=== PATIENT | male | born 1935 | race Caucasian/White ===

== ENCOUNTER 2017-07-30 23:47 | Inpatient (IN) | payer OTHER ==
[~2017-07-30] VITALS: Ht 170.2 cm; Wt 91.1 kg
[2017-07-31 01:12] LABS: Basophils # (auto) 0 uL; Eosinophils # (auto) 0 uL; Hematocrit 35.8 % (41.0-53.0); Hemoglobin 12.2 g/dL (13.5-17.5); Lymphocytes # (auto) 0.4 uL; Lymphocytes % (auto) 2.9 % (10.0-50.0); Mean Corpuscular Hemoglobin 30.5 pg (28.0-32.0); Mean Corpuscular Hgb Conc. 34.1 g/dL (32.0-36.0); Mean Corpuscular Volume 89.2 fL (80.0-100.0); Monocytes # (auto) 0.5 uL; Neutrophils % (auto) 93.1 % (37.0-80.0); Platelet Count (auto) 182 10^3/uL (140-450); Red Blood Cells 4.02 10^6/uL (4.5-5.90); Red Cell Distribution Width 13.3 % (11.8-14.3); White Blood Cell 12.9 10^3/uL (4.4-10.8)
[2017-07-31 01:24] LABS: Albumin 4.1 g/dL (3.4-5.0); BUN/Creatinine Ratio 28.7; Calcium 8.9 mg/dL (8.5-10.1); Potassium 3.6 mmol/L (3.5-5.1)
[2017-07-31 01:29] LABS: Bilirubin, Total 0.3 mg/dL (0.2-1.0); Total Protein 7.3 g/dL (6.4-8.2)
[2017-07-31] MEDS ORDERED: PROMETHAZINE HCL 25 MG/ML 1ML IV ONE (01:30)
[2017-07-31] MEDS ORDERED: methylPREDNISolone SOD SUCC 125 MG/2 ML VL IV ONE (01:30)
[2017-07-31] MEDS ORDERED: LEVOFLOXACIN 750MG 150 ML IV ONE (01:30)
[2017-07-31] MEDS ORDERED: SODIUM CHLORIDE 0.9% 1,000 ML IV ONE (01:30)
[2017-07-31] MEDS ORDERED: NITROGLYCERIN 0.4 MG SL TAB SL ONE (03:45)
[2017-07-31] MEDS ORDERED: MORPHINE SULFATE 10 MG/ML INJ 1ML SDV IV PRN (08:45)
[2017-07-31] MEDS ORDERED: LORazepam 0.5 MG TAB PO PRN (08:45)
[2017-07-31] MEDS ORDERED: ZOLPIDEM TARTRATE 5 MG TAB PO PRN (08:45)
[2017-07-31] MEDS ORDERED: NITROGLYCERIN 0.4 MG SL TAB SL PRN ×2 (08:45)
[2017-07-31] MEDS ORDERED: MORPHINE SULF INJ 2 MG/ML SYRINGE 1ML IV PRN (08:45)
[2017-07-31] MEDS ORDERED: ALUM & MAG HYDROX-SIMETH LIQ(MAALOX) 30 ML PO ONE (08:45)
[2017-07-31] MEDS ORDERED: ONDANSETRON HCL 4 MG/2 ML VIAL IV PRN (08:45)
[2017-07-31] MEDS: cefTRIAXone 1GM/10ml IVPUSH 10 ML IV SCH (09:00)
[2017-07-31] MEDS ORDERED: DEXTROSE (50%) 50ML SYRG IV PRN (09:15)
[2017-07-31 09:50] LABS: Urine Bacteria FEW /hpf (None Seen); Urine Blood Negative /uL (Negative); Urine Mucus FEW (None Seen); Urine Specific Gravity 1.027 (1.001-1.035); Urine WBC 2 /hpf (0 - 3)
[2017-07-31] MEDS ORDERED: ENALAPRIL MALEATE 2.5 MG TAB PO SCH (10:00)
[2017-07-31] MEDS: DOCUSATE SOD 100 MG CAP PO SCH (10:44)
[2017-07-31] MEDS: CARVEDILOL 3.125 MG TAB PO SCH ×2 (10:47→22:00)
[2017-07-31] MEDS: ASPirin 81 mg TAB PO SCH (10:47)
[2017-07-31] MEDS: LOSARTAN POTASSIUM 25 MG TAB PO SCH (10:47)
[2017-07-31] MEDS: ACETYLCYSTEINE ORAL for CIN 20%(200MG/ML) 4ML PO SCH ×2 (10:48→22:00)
[2017-07-31] MEDS: FUROSEMIDE 40 MG TAB PO SCH (10:48)
[2017-07-31] MEDS: POTASSIUM CHL 10 Meq TABLET PO SCH (10:48)
[2017-07-31] MEDS: busPIRone HCL 10 MG TAB PO SCH ×2 (10:49→22:00)
[2017-07-31] MEDS: amLODIPine BESYLATE 5 MG TAB PO SCH (10:49)
[2017-07-31] MEDS: ENOXAPARIN SOD 80 MG/0.8ML SYRINGE SC SCH ×2 (10:49→22:00)
[2017-07-31] MEDS: CLOPIDOGREL BISULFATE 75 MG TAB PO SCH (10:49)
[2017-07-31 11:03] VITALS: BP 137/76
[2017-07-31] MEDS: InsuLIN REG 1unit/0.01ml Soln (100units/ml) SC SCH ×3 (11:30→22:00)
[2017-07-31] MEDS: ACCU-CHEK COMFORT CURVE STRIP VI SCH ×3 (11:30→22:00)
[2017-07-31] MEDS: ALBUTEROL SULF 2.5 MG/0.5ML(0.5%) NEB SOLN NEB SCH ×2 (11:36→18:40)
[2017-07-31] MEDS: IPRATROPIUM BROM 0.5 MG/2.5ML INH SOL NEB SCH ×2 (11:36→18:40)
[2017-07-31 11:46] LABS: INR 1.01 (0.9-1.15)
[2017-07-31] MEDS: SODIUM CHLOR 0.9% PF (SALINE LOCK) 10ML VIAL IV SCH ×2 (14:08→22:00)
[2017-07-31] MEDS ORDERED: LIDOCAINE 2%HCL (LOCAL ANESTH.) INJ 20ML MDV ONE (18:05)
[2017-07-31] MEDS ORDERED: IODIXANOL 320MG/ML 100ML BTL IV ONE (18:05)
[2017-07-31] MEDS ORDERED: ANGIOMAX 250 MG VIAL IV ONE (18:13)
[2017-07-31] MEDS ORDERED: fentaNYL CITRATE 100 MCG/2 ML VL ONE (18:14)
[2017-07-31] MEDS ORDERED: MIDAZOLAM HCL 1MG/1ML-2 ML VIAL ONE (18:14)
[2017-07-31] MEDS ORDERED: SODIUM CHL 0.9% 0 ML ONE (18:14)
[2017-07-31 19:45] VITALS: BP 129/68
[2017-07-31 20:11] VITALS: BP 132/67
[2017-07-31 20:44] VITALS: BP 127/66
[2017-07-31 21:15] VITALS: BP 136/71
[2017-07-31] MEDS: ATORVASTATIN 20 MG TAB PO SCH (22:00)
[2017-07-31] MEDS: DESMOPRESSIN ACET 0.01% 5ML NASAL SPRY SCH (22:00)
[2017-07-31 22:18] VITALS: BP 134/70
[2017-08-01] VITALS (7 sets, daily range): BP systolic 136–157; BP diastolic 62–81
[2017-08-01] MEDS: IPRATROPIUM BROM 0.5 MG/2.5ML INH SOL NEB SCH ×4 (00:15→19:57)
[2017-08-01] MEDS: ALBUTEROL SULF 2.5 MG/0.5ML(0.5%) NEB SOLN NEB SCH ×4 (00:15→19:57)
[2017-08-01] MEDS: SODIUM CHLOR 0.9% PF (SALINE LOCK) 10ML VIAL IV SCH ×3 (06:00→22:00)
[2017-08-01] MEDS: InsuLIN REG 1unit/0.01ml Soln (100units/ml) SC SCH ×4 (06:51→22:00)
[2017-08-01] MEDS: ACCU-CHEK COMFORT CURVE STRIP VI SCH ×4 (06:51→22:00)
[2017-08-01 08:23] LABS: Basophils # (auto) 0 uL; Basophils % (auto) 0.1 % (0.0-2.0); Eosinophils # (auto) 0 uL; Hematocrit 38.8 % (41.0-53.0); Hemoglobin 13.2 g/dL (13.5-17.5); Lymphocytes # (auto) 0.7 uL; Lymphocytes % (auto) 5.2 % (10.0-50.0); Mean Corpuscular Hgb Conc. 34.1 g/dL (32.0-36.0); Monocytes # (auto) 1.2 uL; Monocytes % (auto) 9.4 % (0.0-12.0); Neutrophils # (auto) 10.9 uL; Neutrophils % (auto) 85.3 % (37.0-80.0); Platelet Count (auto) 187 10^3/uL (140-450); Red Blood Cells 4.41 10^6/uL (4.5-5.90); Red Cell Distribution Width 13.4 % (11.8-14.3); White Blood Cell 12.8 10^3/uL (4.4-10.8)
[2017-08-01] MEDS: ACETAMINOPHEN 325 MG TAB PO PRN ×2 (08:39→16:29)
[2017-08-01] MEDS: cefTRIAXone 1GM/10ml IVPUSH 10 ML IV SCH (08:41)
[2017-08-01 08:43] LABS: Albumin 3.6 g/dL (3.4-5.0); BUN/Creatinine Ratio 30.1; Bilirubin, Total 0.3 mg/dL (0.2-1.0); Calcium 8.4 mg/dL (8.5-10.1); Magnesium 2.3 mg/dL (1.6-2.6); Potassium 3.9 mmol/L (3.5-5.1); Total Protein 6.7 g/dL (6.4-8.2)
[2017-08-01] MEDS: CLOPIDOGREL BISULFATE 75 MG TAB PO SCH (08:43)
[2017-08-01] MEDS: ENOXAPARIN SOD 80 MG/0.8ML SYRINGE SC SCH ×2 (08:43→22:00)
[2017-08-01] MEDS: LOSARTAN POTASSIUM 25 MG TAB PO SCH (08:44)
[2017-08-01] MEDS: busPIRone HCL 10 MG TAB PO SCH ×2 (08:44→22:00)
[2017-08-01] MEDS: FUROSEMIDE 40 MG TAB PO SCH (08:45)
[2017-08-01] MEDS: amLODIPine BESYLATE 5 MG TAB PO SCH (08:45)
[2017-08-01] MEDS: POTASSIUM CHL 10 Meq TABLET PO SCH (08:45)
[2017-08-01] MEDS: DOCUSATE SOD 100 MG CAP PO SCH (08:46)
[2017-08-01] MEDS: ASPirin 81 mg TAB PO SCH (08:46)
[2017-08-01] MEDS: CARVEDILOL 3.125 MG TAB PO SCH ×2 (08:47→22:00)
[2017-08-01] MEDS: ACETYLCYSTEINE ORAL for CIN 20%(200MG/ML) 4ML PO SCH ×2 (10:46→22:00)
[2017-08-01] MEDS: PROMETHAZINE W/CODEINE 5 ML ORAL SYRUP PO PRN ×2 (10:47→16:28)
[2017-08-01 16:56] LABS: Urine Bacteria NONE SEEN /hpf (None Seen); Urine Blood Negative /uL (Negative); Urine Specific Gravity 1.015 (1.001-1.035); Urine WBC 3 /hpf (0 - 3)
[2017-08-01] MEDS ORDERED: ASPI-231 PO (19:26)
[2017-08-01] MEDS: DESMOPRESSIN ACET 0.01% 5ML NASAL SPRY SCH (22:00)
[2017-08-01] MEDS: ATORVASTATIN 20 MG TAB PO SCH (22:00)
[2017-08-02] MEDS: IPRATROPIUM BROM 0.5 MG/2.5ML INH SOL NEB SCH ×3 (00:26→11:32)
[2017-08-02] MEDS: ALBUTEROL SULF 2.5 MG/0.5ML(0.5%) NEB SOLN NEB SCH ×3 (00:27→11:32)
[2017-08-02 05:38] VITALS: BP 132/68
[2017-08-02] MEDS: SODIUM CHLOR 0.9% PF (SALINE LOCK) 10ML VIAL IV SCH ×2 (06:00→14:14)
[2017-08-02] MEDS: PROMETHAZINE W/CODEINE 5 ML ORAL SYRUP PO PRN (06:48)
[2017-08-02] MEDS: InsuLIN REG 1unit/0.01ml Soln (100units/ml) SC SCH ×2 (06:48→12:48)
[2017-08-02] MEDS: ACCU-CHEK COMFORT CURVE STRIP VI SCH ×2 (06:52→12:48)
[2017-08-02 07:11] LABS: Basophils # (auto) 0 uL; Basophils % (auto) 0.1 % (0.0-2.0); Eosinophils # (auto) 0 uL; Eosinophils % (auto) 0.4 % (0.0-7.0); Hematocrit 38.4 % (41.0-53.0); Lymphocytes # (auto) 1.2 uL; Mean Corpuscular Hemoglobin 30.1 pg (28.0-32.0); Mean Corpuscular Hgb Conc. 33.9 g/dL (32.0-36.0); Mean Corpuscular Volume 88.8 fL (80.0-100.0); Monocytes # (auto) 1.2 uL; Monocytes % (auto) 10.6 % (0.0-12.0); Neutrophils # (auto) 8.7 uL; Neutrophils % (auto) 77.9 % (37.0-80.0); Nucleated Red Blood Cells % 0.1 %; Platelet Count (auto) 173 10^3/uL (140-450); Red Blood Cells 4.32 10^6/uL (4.5-5.90); Red Cell Distribution Width 13.1 % (11.8-14.3); White Blood Cell 11.2 10^3/uL (4.4-10.8)
[2017-08-02 07:42] LABS: BUN/Creatinine Ratio 32.3; Calcium 8.3 mg/dL (8.5-10.1); Potassium 4.6 mmol/L (3.5-5.1)
[2017-08-02 08:00] VITALS: BP 140/69
[2017-08-02 09:00] VITALS: BP_SYST 128; BP_SYST 140; BP_DIAS 69; BP_DIAS 73
[2017-08-02] MEDS: cefTRIAXone 1GM/10ml IVPUSH 10 ML IV SCH (09:02)
[2017-08-02] MEDS: ASPirin 81 mg TAB PO SCH (09:03)
[2017-08-02] MEDS: LOSARTAN POTASSIUM 25 MG TAB PO SCH (09:03)
[2017-08-02] MEDS: CARVEDILOL 3.125 MG TAB PO SCH (09:03)
[2017-08-02] MEDS: POTASSIUM CHL 10 Meq TABLET PO SCH (09:04)
[2017-08-02] MEDS: amLODIPine BESYLATE 5 MG TAB PO SCH (09:04)
[2017-08-02] MEDS: FUROSEMIDE 40 MG TAB PO SCH (09:04)
[2017-08-02] MEDS: CLOPIDOGREL BISULFATE 75 MG TAB PO SCH (09:04)
[2017-08-02] MEDS: busPIRone HCL 10 MG TAB PO SCH (09:05)
[2017-08-02] MEDS: ENOXAPARIN SOD 80 MG/0.8ML SYRINGE SC SCH (09:05)
[2017-08-02] MEDS: DOCUSATE SOD 100 MG CAP PO SCH (09:05)
[2017-08-02 13:00] VITALS: BP 121/49
== END 2017-08-02 15:00 | disposition left against medical advice (07) | DRG 871 ==
LOC: EDBD 23:47 → ER 23:54 → TELE 23:55 → TELE-EAST 07-31 19:45
PROVIDERS: ADMIT Internal Medicine; ATTEND Nurse Practitioner Acute Care
PROC: 4A023N7 Measurement of Cardiac Sampling and Pressure, Left Heart, Percutaneous Approach (ICD-10-PCS; principal; 2017-07-31)
PROC: B2111ZZ Fluoroscopy of Multiple Coronary Arteries using Low Osmolar Contrast (ICD-10-PCS; 2017-07-31)
PROC: B2131ZZ Fluoroscopy of Multiple Coronary Artery Bypass Grafts using Low Osmolar Contrast (ICD-10-PCS; 2017-07-31)
PROC: B2181ZZ Fluoroscopy of Left Internal Mammary Bypass Graft using Low Osmolar Contrast (ICD-10-PCS; 2017-07-31)
PROC: B41G1ZZ Fluoroscopy of Left Lower Extremity Arteries using Low Osmolar Contrast (ICD-10-PCS; 2017-07-31)
PROC: B41F1ZZ Fluoroscopy of Right Lower Extremity Arteries using Low Osmolar Contrast (ICD-10-PCS; 2017-07-31)
DX: A41.9 Sepsis, unspecified organism (principal); I21.4 Non-ST elevation (NSTEMI) myocardial infarction; I50.33 Acute on chronic diastolic (congestive) heart failure; J44.0 Chronic obstructive pulmonary disease with (acute) lower respiratory infection; E87.1 Hypo-osmolality and hyponatremia; E11.21 Type 2 diabetes mellitus with diabetic nephropathy; J45.901 Unspecified asthma with (acute) exacerbation; J44.1 Chronic obstructive pulmonary disease with (acute) exacerbation; I13.0 Hypertensive heart and chronic kidney disease with heart failure and stage 1 through stage 4 chronic kidney disease, or unspecified chronic kidney disease; I25.82 Chronic total occlusion of coronary artery; J20.9 Acute bronchitis, unspecified; N18.3 Chronic kidney disease, stage 3 (moderate); D63.8 Anemia in other chronic diseases classified elsewhere; E11.22 Type 2 diabetes mellitus with diabetic chronic kidney disease; E66.9 Obesity, unspecified; Z88.1 Allergy status to other antibiotic agents; E78.5 Hyperlipidemia, unspecified; F32.9 Major depressive disorder, single episode, unspecified; F41.9 Anxiety disorder, unspecified; E78.00 Pure hypercholesterolemia, unspecified; I25.10 Atherosclerotic heart disease of native coronary artery without angina pectoris; Z79.82 Long term (current) use of aspirin; Z82.49 Family history of ischemic heart disease and other diseases of the circulatory system; Z68.31 Body mass index [BMI] 31.0-31.9, adult; Z87.891 Personal history of nicotine dependence; Z83.3 Family history of diabetes mellitus; Z95.1 Presence of aortocoronary bypass graft; Z98.61 Coronary angioplasty status; Z53.21 Procedure and treatment not carried out due to patient leaving prior to being seen by health care provider
CPT/HCPCS: 93459; 96361; 96365; 96372; 96375; 99285; G0278; 36415; 71045; 80048; 80053; 80061; 81001; 82962; 83036; 83735; 83880; 84443; 84484; 85025; 85610; 87400; 93005; 93306; 94640; 94761; 99152; J1815; J1956; J2250; J2405; Q9967

== ENCOUNTER 2017-11-27 12:38 | Emergency (ER) | payer OTHER ==
[~2017-11-27] VITALS: Ht 172.7 cm; Wt 86.2 kg
[~2017-11-27 12:38] MED LIST: ASPI-231 PO
[2017-11-27 13:44] LABS: Basophils # (auto) 0 uL; Basophils % (auto) 0.2 % (0.0-2.0); Eosinophils # (auto) 0 uL; Eosinophils % (auto) 0.1 % (0.0-7.0); Hematocrit 35.6 % (41.0-53.0); Hemoglobin 12.4 g/dL (13.5-17.5); Lymphocytes # (auto) 0.4 uL; Lymphocytes % (auto) 2.2 % (10.0-50.0); Mean Corpuscular Hemoglobin 29.5 pg (28.0-32.0); Mean Corpuscular Hgb Conc. 34.8 g/dL (32.0-36.0); Mean Corpuscular Volume 84.9 fL (80.0-100.0); Monocytes # (auto) 0.6 uL; Monocytes % (auto) 3.6 % (0.0-12.0); Neutrophils # (auto) 15.4 uL; Neutrophils % (auto) 93.9 % (37.0-80.0); Platelet Count (auto) 151 10^3/uL (140-450); Red Cell Distribution Width 12.7 % (11.8-14.3); White Blood Cell 16.4 10^3/uL (4.4-10.8)
[2017-11-27 14:01] LABS: Alanine Aminotransferase 23 U/L (16-61); Albumin 4.1 g/dL (3.4-5.0); Anion Gap 12 (5-15); Aspartate Aminotransferase 27 U/L (15-37); BUN/Creatinine Ratio 15.8; Blood Urea Nitrogen 25 mg/dL (7-18); Calcium 8.6 mg/dL (8.5-10.1); Carbon Dioxide 23 mmol/L (21-32); Chloride 86 mmol/L (98-107); GFR African American 56 mL/min; GFR Non-African American 46 mL/min; Glucose 153 mg/dL (74-106); Magnesium 1.6 mg/dL (1.6-2.6); Potassium 3.6 mmol/L (3.5-5.1); Sodium 121 mmol/L (136-145)
[2017-11-27 14:06] LABS: Alkaline Phosphatase 46 U/L (45-117); Bilirubin, Total 0.7 mg/dL (0.2-1.0); Total Protein 6.9 g/dL (6.4-8.2)
[2017-11-27] MEDS ORDERED: SODIUM CHLORIDE 0.9% 1,000 ML IV ONE ×3 (15:08→15:15)
[2017-11-27] MEDS ORDERED: cefTRIAXone 1GM/10ml IVPUSH 10 ML IV ONE (15:15)
[2017-11-27 16:12] LABS: Urine Bacteria NONE SEEN /hpf (None Seen); Urine Blood 2+ /uL (Negative); Urine Specific Gravity 1.014 (1.001-1.035); Urine WBC 3 /hpf (0 - 3)
[2017-11-27 20:21] VITALS: BP 128/65
== END 2017-11-27 20:33 | disposition short-term general hospital (02) ==
LOC: MERGE 12:38 → EDBD 12:38 → ER 12:38
DX: E11.65 Type 2 diabetes mellitus with hyperglycemia (principal); E87.1 Hypo-osmolality and hyponatremia; R55 Syncope and collapse; I10 Essential (primary) hypertension; R42 Dizziness and giddiness; Z95.1 Presence of aortocoronary bypass graft
CPT/HCPCS: 36415; 70450; 74176; 80053; 81001; 83605; 83735; 84484; 85025; 87040; 93005; 93971; 94761; 96361; 96374

== ENCOUNTER 2025-01-18 15:54 | Emergency (ER) | payer OTHER ==
[~2025-01-18] VITALS: Ht 175.3 cm; Wt 72.0 kg
[~2025-01-18 15:54] MED LIST changes: -ASPI-231 PO; +ASPI1TAB20 PO
[2025-01-18 16:10] VITALS: PULSE 63; RESP 16; O2SAT 95
--- NOTE | 2025-01-18 16:22 | ED.PDOC ---
[place]. trauma (HPI) HPI Comments 89-year-old male presents here status post fall. Patient states he was walking outside to get the mail when he tripped and fell. Denies any dizziness prior to falling. Denies any chest pain or shortness of breath. Reports some mild left elbow pain only. Denies any headache. States he did not hit his head. Did not lose any consciousness. Patient is not on any blood thinners. Denies any neck or back pain. Denies any hip pain. He states he is able to move all extremities no problem including the left elbow. Chief Complaint: Fall Injury Time Seen by MD: 16:20 Primary Care Provider: [facility] Reviewed notes: Nurses Notes, French Teacher Notes, Medications, Allergies Allergies: Coded Allergies: Bacitracin (Verified Allergy, Unknown, 02/05/16) Neomycin (Verified Allergy, Unknown, 02/05/16) Polymyxin B (Verified Allergy, Unknown, 02/05/16) Home Meds Reported Medications Aspirin (Aspir-81) 81 Mg Tab, 1 TAB PO DAILY, TAB 08/01/17 Information Source: Patient Mode of Arrival: EMS Severity: Moderate Timing: Minutes Duration: Since onset Prehospital treatment: None Location: (L) Elbow Location of laceration: None Mechanism: Fall Associated signs and symtoms: None Past Medical History PAST MEDICAL HISTORY: Anxiety, CAD, CHF, COPD, Depression, DM, High Lipids, HTN Surgical History: CABG Family History Family History: No family hx of DM, No family hx of Heart victorina, No family hx of HTN Social History Smoker: Non-Smoker Alcohol: Denies ETOH Use Drugs: Denies Drug Use Lives In: Home Constitutional: denies: chills, diaphoresis, fatigue, fever, malaise, sweats, weakness, others EENTM: denies: blurred vision, double vision, ear bleeding, ear discharge, ear drainage, ear pain, ear ringing, eye pain, eye redness, hearing loss, mouth pain, mouth swelling, nasal discharge, nose bleeding, nose congestion, nose pain, photophobia, tearing, throat pain, throat swelling, voice changes, others Respiratory: denies: cough, hemoptysis, orthopnea, SOB at rest, shortness of breath, SOB with excertion, stridor, wheezing, others Cardiovascular: denies: chest pain, dizzy spells, diaphoresis, Dyspnea on exertion, edema, irregular heart beat, left arm pain, lightheadedness, palpitations, PND, syncope, others Gastrointestinal: denies: abdomen distended, abdominal pain, blood streaked bowels, constipated, diarrhea, dysphagia, difficulty swallowing, hematemesis, melena, nausea, poor appetite, poor fluid intake, rectal bleeding, rectal pain, vomiting, others Genitourinary: denies: burning, dysuria, flank pain, frequency, hematuria, incontinence, penile discharge, penile sore, pain, testicle pain, testicle swelling, urgency, others Neurological: denies: dizziness, fainting, headache, left sided numbness, left sided weakness, numbness, paresthesia, pre-existing deficit, right sided numbness, right sided weakness, seizure, speech problems, tingling, tremors, weakness, others Musculoskeletal: reports: others (left elbow pain); denies: back pain, gout, joint pain, joint swelling, muscle pain, muscle stiffness, neck pain Integumetry: denies: bruises, change in color, change in hair/nails, dryness, laceration, lesions, lumps, rash, wounds, others Allergic/Immunocompromised: denies: Difficulty Healing, Frequent Infections, Hives, Itching, others Hematologic/Lymphatic: denies: anemia, blood clots, easy bleeding, easy bruising, swollen glands, others Endocrine: denies: excessive hunger, excessive sweating, excessive thirst, excessive urination, flushing, intolerance to cold, intolerance to heat, unexplained weight gain, unexplained weight loss, others Psychiatric: denies: anxiety, bipolar disorder, depression, hopeless, panic disorder, schizophrenia, sleepless, suicidal, others All Other Systems: Reviewed and Negative Physical Exam General Appearance: No Apparent Distress, Normal HEENT: Normal ENT Inspection, Pharynx Normal Neck: Full Range of Motion, Non-Tender, Normal, Normal Inspection Respiratory: Chest Non-Tender, Lungs Clear, No Accessory Muscle Use, No Respiratory Distress, Normal Breath Sounds Cardiovascular: No Edema, No Murmur, No Gallop, Normal Peripheral Pulses, Regular Rate/Rhythm Breast Exam: Deferred Gastrointestinal: No Organomegaly, Non Tender, No Pulsatile Mass, Normal Bowel Sounds, Soft Genitalia: Deferred Pelvic: Deferred Rectal: Deferred Extremities: No calf tenderness, Normal range of motion, Non-tender, Swelling (Bilateral leg swelling was worse in the right. 1+ pitting edema to left lower extremity, 2+ pitting edema to right lower extremity. Mild erythema to the lower aspect of the right lower extremity.), Other (Left elbow with dried blood, and jagged skin tear. Full range of motion to the left elbow. No deformity. Pelvis stable. Nontender CT and L-spine) Musculoskeletal : Apperance: Normal Neurologic: Alert, filter tip inspector II-XII nml as Tested, No Motor Deficits, Normal Affect, Normal Mood, No Sensory Deficits Cerebellar Function: Normal Reflexes: Normal Skin: Dry, Normal Color, Warm Lymphatic: No Adenopathy Was a procedure done? Was a procedure done?: Yes Sedation Sedation?: No Laceration Repair : Length 1. 3 x 2 cm. 2. 1 x 1 cm Anesthetic: Without epi Laceration Repair Prep: Saline, by Irrigation Laceration Repair: Bacitracin, Non-adherent gauze Informed consent obtained: Yes Risks, benefits, and alternati: Yes Notes Steri-Strips applied to skin tear Differential Diagnosis Multiple Trauma: Closed Head Injury, Fractures, Spine Injury, Abrasions, Contu tabatha, Laceration, Other (sprain,strain, contusion, laceration, intracranial hemorrhage, spinal fracture, electrolyte abnormality, DVT, cellulitis, fluid overload) Neck Injury: Cervical Muscle Spasm, Cervical Strain, Cervical Fracture, Spinal Cord Injury X-Ray, Labs, Meds, VS Vital Signs Date Time Temp Pulse Resp B/P (MAP) Pulse Ox O2 Delivery O2 Flow Rate FiO2 01/18/25 16:18 97.6 67 18 121/53 (75) 99 97.6 01/18/25 16:10 63 16 95 Room Air* 0 21 01/18/25 16:10 98.1 63 16 138/60 (86) 95 98.1 Lab Test 01/18/25 16:56 Range/Units White Blood Count 8.1 4.4-10.8 10^3/uL Red Blood Count 3.83 L 4.5-5.90 10^6/uL Hemoglobin 11.9 L 13.5-17.5 g/dL Hematocrit 35.6 L 41.0-53.0 % Mean Corpuscular Volume 92.8 80.0-100.0 fL Mean Corpuscular Hemoglobin 31.1 28.0-32.0 pg Mean Corpuscular Hemoglobin Concent 33.6 32.0-36.0 g/dL Red Cell Distribution Width 15.2 H 11.8-14.3 % Platelet Count 174 140-450 10^3/uL Mean Platelet Volume 7.9 6.9-10.8 fL Neutrophils (%) (Auto) 73.5 37.0-80.0 % Lymphocytes (%) (Auto) 14.4 10.0-50.0 % Monocytes (%) (Auto) 7.1 0.0-12.0 % Eosinophils (%) (Auto) 4.1 0.0-7.0 % Basophils (%) (Auto) 0.9 0.0-2.0 % Neutrophils # (Auto) 6.0 1.6-8.6 10 ^3/uL Lymphocytes # (Auto) 1.2 0.4-5.4 10 ^3/uL Monocytes # (Auto) 0.6 0-1.3 10 ^3/uL Eosinophils # (Auto) 0.3 0-0.8 10 ^3/uL Basophils # (Auto) 0.1 0-0.2 10 ^3/uL Nucleated Red Blood Cells 0.1 % Sodium Level 143 136-145 mmol/L Potassium Level 3.6 3.5-5.1 mmol/L Chloride Level 107 98-107 mmol/L Carbon Dioxide Level 29 20-31 mmol/L Anion Gap 7 5-15 Blood Urea Nitrogen 39 H 9-23 mg/dL Creatinine 2.01 H 0.700-1.30 mg/dL Glomerular Filtration Rate Calc 31 >90 mL/min BUN/Creatinine Ratio 19.4 10.0-20.0 Serum Glucose 124 H 74-106 mg/dL Calcium Level 9.3 8.7-10.4 mg/dL B-Type Natriuretic Peptide Pending Current Medications Medications (Trade) Dose Ordered Sig/Marly Route Start Time Stop Time Status Last Admin Bacitracin 1 applic ONCE ONCE TOP 01/18/25 17:00 01/18/25 17:01 DC 01/18/25 16:59 89-year-old male presents here status post fall. Patient states he was not dizzy. States he tripped and fell. At this time on examination his skin tears to the left elbow which has been cleaned. Tetanus status has been updated. Full range of motion to left elbow doubt fracture. He does have some swelling to his bilateral legs and no other history available. Therefore I have ordered a CBC BMP, BNP, ultrasound of the right lower extremity to rule out DVT. After initial history is now at bedside. She states that the extremity swelling has been there for greater than a year to the right leg and right leg is always more swollen than the left. In the lower end of the right leg is always slightly red. At this time I have canceled the ultrasound to rule out DVT. He does have some kidney issues therefore she is requesting we continue with labs. At this time CBC is unremarkable. BMP demonstrates elevated BUN at 39 with creatinine 2.01. I advised family this could be his normal however they do not know his normal baseline. states she does have this information at home. 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 She states she just follow up with him last week. At this time is comfortable following up with professor of archaeology. Patient has been given dressing supplies in the ER. Daughter is a nurse. Advised patient to return to the ER if symptoms worsen or persist. Time of 1ST Reevaluation: 16:50 Reevaluation 1ST: Unchanged Patient Education/Counseling: Diagnosis, Treatment Family Education/Counseling: No Family Present Departure 1 Departure Time of Disposition: 18:50 Impression: Primary Impression: Skin tear Additional Impression: Acute kidney injury Disposition: HOME / SELF CARE / HOMELESS Condition: Stable Additional Instructions: Your creatinine today is 2.01. Please follow up with the professor of archaeology. Return to the ER if symptoms worsen or persist. Discharged With: Self, Relative, Spouse Critical Care Note Critical Care Time?: No Stability Stability form required: No Heart Score Heart Score: Heart Score Response (Comments) Value History N/A 0 EKG N/A 0 Age N/A 0 Risk Factors N/A 0 Troponin N/A 0 Total 0 I personally scribed for CAYDEN DUNN MD ([email or web address]) on 01/18/25 at 16:22. Electronically submitted by Blanche Bryson ([email or web address]). CAYDEN DUNN MD Jan 18, 2025 16:22
[2025-01-18] MEDS: BACITRACIN TOP OINT 1 UD PKG TOP ONE (16:59)
[2025-01-18 17:04] LABS: Hematocrit 35.6 % (41.0-53.0); Hemoglobin 11.9 g/dL (13.5-17.5); Mean Corpuscular Hemoglobin 31.1 pg (28.0-32.0); Mean Corpuscular Volume 92.8 fL (80.0-100.0); Nucleated Red Blood Cells % 0.1 %
[2025-01-18 17:12] LABS: Potassium 3.6 mmol/L (3.5-5.1); Sodium 143 mmol/L (136-145)
[2025-01-18 17:13] LABS: Anion Gap 7 (5-15); Calcium 9.3 mg/dL (8.7-10.4); Carbon Dioxide 29 mmol/L (20-31)
[2025-01-18 17:18] LABS: BUN/Creatinine Ratio 19.4 (10.0-20.0)
[2025-01-18 17:22] LABS: Blood Urea Nitrogen 39 mg/dL (9-23); Chloride 107 mmol/L (98-107); Glucose 124 mg/dL (74-106)
[2025-01-18 18:01] VITALS: BP 146/51; PULSE 60; RESP 16; TEMP 98.2; O2SAT 96
== END 2025-01-18 18:05 | disposition home or self-care (01) ==
LOC: ER 15:54 → EDBD 15:54 → ER 18:05
DX: S51.012A Laceration without foreign body of left elbow, initial encounter (principal); F41.9 Anxiety disorder, unspecified; F32.A Depression, unspecified; E11.9 Type 2 diabetes mellitus without complications; I11.0 Hypertensive heart disease with heart failure; I25.10 Atherosclerotic heart disease of native coronary artery without angina pectoris; E78.5 Hyperlipidemia, unspecified; I50.9 Heart failure, unspecified; J44.9 Chronic obstructive pulmonary disease, unspecified; N17.9 Acute kidney failure, unspecified; Z95.1 Presence of aortocoronary bypass graft; Z79.82 Long term (current) use of aspirin; W01.0XXA Fall on same level from slipping, tripping and stumbling without subsequent striking against object, initial encounter; Y93.01 Activity, walking, marching and hiking; Y92.89 Other specified places as the place of occurrence of the external cause; Y99.8 Other external cause status
CPT/HCPCS: 36415; 80048; 83880; 85025

== ENCOUNTER 2025-02-03 08:08 | Emergency (ER) | payer OTHER ==
[~2025-02-03] VITALS: Ht 167.6 cm; Wt 68.0 kg
--- NOTE | 2025-02-03 08:29 | ECG ---
[facility] Test Date: 2025-02-03 Test Time: 08:15:09 Pat Name: PRIETO GARCIA Department: ED Room: Gender: M Mini Bar Attendant: ALFONSO : 1935 Requested By: ILSA CHI Order Number: [id number] Reading MD: Miguel To Measurements Intervals [place] Rate: 84 P: 92 LA: 53 QRS: 35 QRSD: 103 T: 29 QT: 418 QTc: 495 Interpretive Statements Sinus rhythm Short LA interval LVH with secondary repolarization abnormality Borderline prolonged QT interval Baseline wander in lead(s) V3 Electronically Signed On 02-04-2025 17:52:55 PDT by Miguel To Please click the below link to view image of tracing.
[2025-02-03 08:59] LABS: Urine Protein, UAD Negative (Negative)
--- NOTE | 2025-02-03 08:59 | ED.PDOC ---
General HPI Comments 89 y/o M, BIBA, with PMHx of anxiety, CAD, CHF, COPD, DM, HLD, and HTN presents to the ED for CC of urinary. Patient is poor historian and c/o suprapubic abdominal pain and inability to have a bowel movement. Upon arrival, to the ED patient had a Leal Catheter placed and had 700mL of clear yellow urine drain; endorses feeling relief. No other associated symptoms, modifiers, recent injuries or sick contacts present at this time. Chief Complaint: Urinary Time Seen by MD: 08:50 Primary Care Provider: [facility] Reviewed notes: Nurses Notes, Medications, Allergies Allergies: Coded Allergies: Bacitracin (Verified Allergy, Unknown, 02/05/16) Neomycin (Verified Allergy, Unknown, 02/05/16) Polymyxin B (Verified Allergy, Unknown, 02/05/16) Home Meds Reported Medications Aspirin (Aspir-81) 81 Mg Tab, 1 TAB PO DAILY, TAB 08/01/17 Information Source: Patient Mode of Arrival: Ambulatory Severity: Moderate Inability to void: Moderate Timing: Days Duration: Since onset Prehospital treatment: None Onset: Spontaneous Symptoms: None History of: None Location: None Penile discharge: None Modifying factors: None associated signs and symptoms: Abdominal Pain, Inability to Void Past Medical History PAST MEDICAL HISTORY: Anxiety, CAD, CHF, COPD, Depression, DM, High Lipids, HTN Surgical History: CABG Family History Family History: No family hx of DM, No family hx of Heart victorina, No family hx of HTN Social History Smoker: Non-Smoker Alcohol: Denies ETOH Use Drugs: Denies Drug Use Lives In: Home Constitutional: denies: chills, diaphoresis, fatigue, fever, malaise, sweats, weakness, others EENTM: denies: blurred vision, double vision, ear bleeding, ear discharge, ear drainage, ear pain, ear ringing, eye pain, eye redness, hearing loss, mouth pain, mouth swelling, nasal discharge, nose bleeding, nose congestion, nose pain, photophobia, tearing, throat pain, throat swelling, voice changes, others Respiratory: denies: cough, hemoptysis, orthopnea, SOB at rest, shortness of breath, SOB with excertion, stridor, wheezing, others Cardiovascular: denies: chest pain, dizzy spells, diaphoresis, Dyspnea on exertion, edema, irregular heart beat, left arm pain, lightheadedness, palpitations, PND, syncope, others Gastrointestinal: reports: abdomen distended, abdominal pain; denies: blood streaked bowels, constipated, diarrhea, dysphagia, difficulty swallowing, joey temesis, melena, nausea, poor appetite, poor fluid intake, rectal bleeding, rectal pain, vomiting, others Genitourinary: denies: burning, dysuria, flank pain, frequency, hematuria, incontinence, penile discharge, penile sore, pain, testicle pain, testicle swelling, urgency, others Neurological: denies: dizziness, fainting, headache, left sided numbness, left sided weakness, numbness, paresthesia, pre-existing deficit, right sided numbness, right sided weakness, seizure, speech problems, tingling, tremors, weakness, others Musculoskeletal: denies: back pain, gout, joint pain, joint swelling, muscle pain, muscle stiffness, neck pain, others Integumetry: denies: bruises, change in color, change in hair/nails, dryness, laceration, lesions, lumps, rash, wounds, others Allergic/Immunocompromised: denies: Difficulty Healing, Frequent Infections, Hives, Itching, others Hematologic/Lymphatic: denies: anemia, blood clots, easy bleeding, easy bruising, swollen glands, others Endocrine: denies: excessive hunger, excessive sweating, excessive thirst, excessive urination, flushing, intolerance to cold, intolerance to heat, unexplained weight gain, unexplained weight loss, others Psychiatric: denies: anxiety, bipolar disorder, depression, hopeless, panic disorder, schizophrenia, sleepless, suicidal, others All Other Systems: Reviewed and Negative Physical Exam General Appearance: No Apparent Distress, Normal HEENT: Normal ENT Inspection, Pharynx Normal Neck: Full Range of Motion, Non-Tender, Normal, Normal Inspection Respiratory: Chest Non-Tender, Lungs Clear, No Accessory Muscle Use, No Respiratory Distress, Normal Breath Sounds Cardiovascular: No Edema, No Murmur, No Gallop, Normal Peripheral Pulses, Regular Rate/Rhythm Breast Exam: Deferred Gastrointestinal: No Organomegaly, Non Tender, No Pulsatile Mass, Normal Bowel Sounds, Soft Genitalia: Deferred Pelvic: Deferred Rectal: Deferred Extremities: No calf tenderness, Normal capillary refill, Normal inspection, Normal range of motion, Non-tender, No pedal edema Musculoskeletal : Apperance: Normal Neurologic: phlebotomy tech II-XII nml as Tested, No Motor Deficits, Normal Affect, Normal Mood, No Sensory Deficits, Other (pleasantly confused) Cerebellar Function: Normal Reflexes: Normal Skin: Dry, Normal Color, Warm Lymphatic: No Adenopathy Was a procedure done? Was a procedure done?: No Differential Diagnosis Kidney stone (Female): N/A Kidney stone (Male): Urinary obstruction, Urolithiasis, Urinary tract infection Penile/Scrotal: N/A Urinary Problem (Male): Urinary Retention Urinary Problem (Female): N/A X-Ray, Labs, Meds, VS Vital Signs Date Time Temp Pulse Resp B/P (MAP) Pulse Ox O2 Delivery O2 Flow Rate FiO2 02/03/25 09:47 68 16 95 Room Air 02/03/25 09:47 97.7 66 16 127/74 (91) 95 97.7 02/03/25 08:40 Room Air* 0 21 02/03/25 08:15 84 02/03/25 08:10 98.0 70 16 138/66 (90) 95 98.0 Lab Test 02/03/25 10:34 02/03/25 08:41 Range/Units White Blood Count 14.2 H 4.4-10.8 10^3/uL Red Blood Count 4.59 4.5-5.90 10^6/uL Hemoglobin 14.4 13.5-17.5 g/dL Hematocrit 42.9 41.0-53.0 % Mean Corpuscular Volume 93.6 80.0-100.0 fL Mean Corpuscular Hemoglobin 31.4 28.0-32.0 pg Mean Corpuscular Hemoglobin Concent 33.5 32.0-36.0 g/dL Red Cell Distribution Width 15.1 H 11.8-14.3 % Platelet Count 195 140-450 10^3/uL Mean Platelet Volume 8.2 6.9-10.8 fL Neutrophils (%) (Auto) 92.7 H 37.0-80.0 % Lymphocytes (%) (Auto) 4.4 L 10.0-50.0 % Monocytes (%) (Auto) 2.3 0.0-12.0 % Eosinophils (%) (Auto) 0.2 0.0-7.0 % Basophils (%) (Auto) 0.4 0.0-2.0 % Neutrophils # (Auto) 13.1 H 1.6-8.6 10 ^3/uL Lymphocytes # (Auto) 0.6 0.4-5.4 10 ^3/uL Monocytes # (Auto) 0.3 0-1.3 10 ^3/uL Eosinophils # (Auto) 0 0-0.8 10 ^3/uL Basophils # (Auto) 0.1 0-0.2 10 ^3/uL Nucleated Red Blood Cells 0.0 % Sodium Level 140 136-145 mmol/L Potassium Level 4.3 3.5-5.1 mmol/L Chloride Level 99 98-107 mmol/L Carbon Dioxide Level 31 20-31 mmol/L Anion Gap 10 5-15 Blood Urea Nitrogen 47 H 9-23 mg/dL Creatinine 2.08 H 0.700-1.30 mg/dL Glomerular Filtration Rate Calc 30 >90 mL/min BUN/Creatinine Ratio 22.6 H 10.0-20.0 Serum Glucose 192 H 74-106 mg/dL Calcium Level 10.2 8.7-10.4 mg/dL Urine Color Light-yellow Yellow Urine Clarity Clear Clear Urine pH 7.0 5.0-9.0 Urine Specific [place] 1.011 1.001-1.035 Urine Protein Negative Negative Urine Ketones Negative Negative Urine Blood Negative Negative /uL Urine Nitrite Negative Negative Urine Bilirubin Negative Negative Urine Urobilinogen Normal Negative mg/dL Urine Leukocyte Esterase Negative Negative /uL Urine RBC None seen 0 - 3 /hpf Urine Microscopic WBC < 1 0-3 /HPF Urine Squamous Epithelial Cells None seen <5 /hpf Urine Bacteria None seen None Seen /hpf Urine Hyaline Casts Few 0 - 2 /lpf Urine Glucose Normal Normal mg/dL [place] [id number] Ph: [phone] DIAGNOSTIC IMAGING Diagnostic Imaging Report : [id number] Signed PATIENT: PRIETO GARCIA ACCT: [id number] UNIT: [id number] : 1935 LOC: ER ROOM / BED: / AGE / SEX: 89 / M ADM STATUS: REG ER SERVICE [id number] ORDERING PHYSICIAN: ILSA CHI MD PROCEDURE(s): ABPL - CT AB PEL WO CON-NO ORAL OR IV REASON: abdominal pain ORDER NUMBER(s): [id number], ACCESSION NUMBER(s): [id number] CT CT AB PEL WO CON-NO ORAL OR IV INDICATION: abdominal pain EXAM DATE: 02/03/2025 08:51 AM COMPARISON: None RADIATION DOSE: CTDIvol: 6.19 mGy, DLP: 360.42 mGy*cm PROCEDURE: Helical CT images were obtained of the abdomen and pelvis without IV contrast Sagittal and coronal reconstructions are provided. ORAL CONTRAST: None. ADDITIONAL IMAGES / REFORMATS: None All CT scans at this medical facility are performed using dose modulation techniques as appropriate to a performed exam including the following: Automated exposure control was utilized; adjustment of the MA and/or KV according to patient size; and use of iterative reconstruction technique. FINDINGS: LUNG BASE: Bibasilar atelectasis. LIVER: Normal. GALLBLADDER AND BILIARY TREE: Gallstone in the gallbladder. No intra- or extrahepatic biliary ductal dilation. PANCREAS: Normal. SPLEEN: Normal. BOWEL: Moderate fecal ball in the rectum. Mild colonic diverticulosis. Normal appendix. ADRENALS: Normal. KIDNEYS AND URETER: Bilateral punctate nonobstructive kidney stones. BLADDER: Leal in the bladder. REPRODUCTIVE ORGANS: Normal. LYMPH NODES:No lymphadenopathy. PERITONEUM: No ascites or free air. No other fluid collection. VESSELS: Scattered atherosclerotic calcifications are noted. RETROPERITONEUM: Normal. ABDOMINAL WALL: Normal. BONES: Scattered osseous degenerative changes are noted. IMPRESSION: No acute intraabdominal abnormality. Moderate fecal ball in the rectum. Mild colonic diverticulosis. Bilateral punctate nonobstructive kidney stones. ATED BY: PATEL BERMUDEZ MD DICTATED DATE/TIME: 02/03/25943 SIGNED BY: PATEL BERMUDEZ MD SIGNED DATE/TIME: 02/03/25943 CC: Time of 1ST Reevaluation: 09:20 Reevaluation 1ST: Unchanged Patient Education/Counseling: Diagnosis, Treatment Family Education/Counseling: No Family Present SEPSIS Sepsis Screen Physician Orders Ct Ab Pel Wo Con-No Oral Or Iv (02/03/25 08:41) Vital Signs Date Time Temp Pulse Resp B/P (MAP) Pulse Ox O2 Delivery O2 Flow Rate FiO2 02/03/25 09:47 68 16 95 Room Air 02/03/25 09:47 97.7 66 16 127/74 (91) 95 97.7 02/03/25 08:40 Room Air* 0 21 02/03/25 08:15 84 02/03/25 08:10 98.0 70 16 138/66 (90) 95 98.0 Laboratory Tests Test 02/03/25 10:34 White Blood Count 14.2 10^3/uL (4.4-10.8) H Departure 1 Departure Time of Disposition: 11:11 (Patient presented with abdominal pain that was concerning for possible appendicits, gastritis, cholecystitis, colitis, gastroenteritis, or orther possible surgical emergency. Data: 1. I ordered and reviewed the result of at least 3 labs including a CBC, BMP, and Urinalysis. 2. I independently interpreted the following tests: CT Abdoment and Pelvis is concerning for constipation .Risk:This patient has a high risk of morbidity due to further diagnostic testing or treatment and may suffer from an acute abdominal process disorder. Fortunately workup reveals constipation and patient can be safely discharged to home with outpatient follow up.) Impression: Primary Impression: Acute urinary retention Additional Impression: Constipation Qualified Codes: K59.00 - Constipation, unspecified Disposition: HOME / SELF CARE / HOMELESS Condition: Stable Referrals: FERDINAND HERNANDEZ MD Additional Instructions: You are constipated. It is important to stay well rested and well hydrated. You should eat a high-fiber diet. You were prescribed MiraLax. This will help you have bowel movements. Please take as directed. You also had acute urinary retention and had a Leal placed. It is important to follow up with the regular doctor or urologist in three days to have your catheter removed. If your symptoms worsen or you have any other concerns please return to the emergency room. Discharged With: Self Critical Care Note Critical Care Time?: No Stability Stability form required: No Heart Score Heart Score: Heart Score Response (Comments) Value History N/A 0 EKG N/A 0 Age N/A 0 Risk Factors N/A 0 Troponin N/A 0 Total 0 I personally scribed for ILSA CHI MD ([email or web address]) on 02/03/25 at 08:59. Electronically submitted by Blanche Bryson ([email or web address]). I personally scribed for ILSA CHI MD ([email or web address]) on 02/03/25 at 09:03. Electronically submitted by Blanche Bryson ([email or web address]). I personally scribed for ILSA CHI MD ([email or web address]) on 02/03/25 at 10:16. Electronically submitted by Blanche Bryson ([email or web address]). ILSA CHI MD Feb 03, 2025 08:59
--- NOTE | 2025-02-03 09:46 | DVH ---
CT CT AB PEL WO CON-NO ORAL OR IV INDICATION: abdominal pain EXAM DATE: 02/03/2025 08:51 AM COMPARISON: None RADIATION DOSE: CTDIvol: 6.19 mGy, DLP: 360.42 mGy*cm PROCEDURE: Helical CT images were obtained of the abdomen and pelvis without IV contrast Sagittal and coronal reconstructions are provided. ORAL CONTRAST: None. ADDITIONAL IMAGES / REFORMATS: None All C T scans at this medical facility are performed using dose modulation techniques as appropriate to a p erformed exam including the following: Automated exposure control was utilized; adjustment of the MA and/or KV according to patient size; and use of iterative reconstruction technique. FINDINGS: LUNG BASE: Bibasilar atelectasis. LIVER: Normal. GALLBLADDER AND BILIARY TREE: Gallstone in the gallbladder. No intra- or extrahepatic biliary ductal dilation. PANCREAS: Normal. SPLEEN: Normal. BOWEL: Moderate fecal ball in the rectum. Mild colonic diverticulosis. Normal appendix. ADRENALS: Normal. KIDNEYS AND URETER: Bilateral punctate nonobstructive kidney stones. BLADDER: Leal in the bladder. REPRODUCTIVE ORGANS: Normal. LYMPH NODES:No lymphadenopathy. PERITONEUM: No ascites or free air. No other fluid collection. VESSELS: Scattered atherosclerotic calcifications are noted. RETROPERITONEUM: Normal. ABDOMINAL WALL: Normal. BONES: Scattered osseous degenerative changes are noted. IMPRESSION: No acute intraabdominal abnormality. Moderate fecal ball in the rectum. Mild colonic diverticulosis. Bilateral punctate nonobstructive kidney stones.
[2025-02-03 09:47] VITALS: BP 127/74; PULSE 68; RESP 16; TEMP 97.7; O2SAT 95
[2025-02-03 10:51] LABS: Hematocrit 42.9 % (41.0-53.0); Hemoglobin 14.4 g/dL (13.5-17.5); Mean Corpuscular Hemoglobin 31.4 pg (28.0-32.0); Mean Corpuscular Volume 93.6 fL (80.0-100.0); Nucleated Red Blood Cells % 0.0 %
[2025-02-03 10:54] LABS: Chloride 99 mmol/L (98-107); Potassium 4.3 mmol/L (3.5-5.1); Sodium 140 mmol/L (136-145)
[2025-02-03 10:55] LABS: Anion Gap 10 (5-15); Calcium 10.2 mg/dL (8.7-10.4); Carbon Dioxide 31 mmol/L (20-31)
[2025-02-03 11:00] LABS: BUN/Creatinine Ratio 22.6 (10.0-20.0)
[2025-02-03 11:01] LABS: Blood Urea Nitrogen 47 mg/dL (9-23); Glucose 192 mg/dL (74-106)
[2025-02-03] MEDS: POLYETHYLENE GLYCOL 17 GM PWDR PO ONE (13:30)
== END 2025-02-03 13:45 | disposition home or self-care (01) ==
LOC: ER 08:08 → EDBD 08:08 → ER 12:26
DX: R33.9 Retention of urine, unspecified (principal); K59.00 Constipation, unspecified; I11.0 Hypertensive heart disease with heart failure; I50.9 Heart failure, unspecified; E11.9 Type 2 diabetes mellitus without complications; E78.5 Hyperlipidemia, unspecified; J44.9 Chronic obstructive pulmonary disease, unspecified; K57.30 Diverticulosis of large intestine without perforation or abscess without bleeding; Z79.82 Long term (current) use of aspirin; Z95.1 Presence of aortocoronary bypass graft
CPT/HCPCS: 36415; 51702; 74176; 80048; 81001; 85025; 93005

== ENCOUNTER 2025-02-08 15:10 | Emergency (ER) | payer OTHER ==
[~2025-02-08] VITALS: Ht 182.9 cm; Wt 81.8 kg
[2025-02-08] MEDS: SODIUM CHLORIDE 0.9% 1,000 ML IV ONE (15:30)
[2025-02-08 15:43] LABS: Hematocrit 37.5 % (41.0-53.0); Hemoglobin 12.5 g/dL (13.5-17.5); Mean Corpuscular Hemoglobin 31.1 pg (28.0-32.0); Mean Corpuscular Volume 93.3 fL (80.0-100.0); Nucleated Red Blood Cells % 0.0 %
[2025-02-08 16:02] LABS: Albumin 4.1 g/dL (3.2-4.8); Alkaline Phosphatase 69 U/L (46-116); Anion Gap 6 (5-15); BUN/Creatinine Ratio 22.7 (10.0-20.0); Bilirubin, Total 0.3 mg/dL (0.2-1.0); Calcium 8.9 mg/dL (8.7-10.4); Chloride 102 mmol/L (98-107); Potassium 4.7 mmol/L (3.5-5.1); Sodium 140 mmol/L (136-145); Total Protein 6.4 g/dL (5.7-8.2)
[2025-02-08 16:06] LABS: Alanine Aminotransferase 41 U/L (7-40); Blood Urea Nitrogen 40 mg/dL (9-23); Carbon Dioxide 32 mmol/L (20-31); Glucose 127 mg/dL (74-106)
[2025-02-08 18:56] LABS: Urine Protein, UAD Negative (Negative)
--- NOTE | 2025-02-08 19:37 | ED.PDOC ---
History of Present Illness HPI Comments This patient is an 89-year-old male who was brought in by EMS due to concern of a shaking event that occurred approximately 1 hour prior to arrival. According to EMS, patient's stated that the patient had a shaking event that lasted approximately 1 minute. Shaking event resolved. was belligerent with the EMS staff at time of assistance. Patient arrives looking asymptomatic. Patient was hypertensive in nearly bradycardic at arrival. Chief Complaint: General Weakness Time Seen by MD: 15:11 Primary Care Provider: [facility] Reviewed Notes: Nurses Notes, Fingerprint Technician Notes Allergies: Coded Allergies: Bacitracin (Verified Allergy, Unknown, 02/05/16) Neomycin (Verified Allergy, Unknown, 02/05/16) Polymyxin B (Verified Allergy, Unknown, 02/05/16) Home Meds Reported Medications Aspirin (Aspir-81) 81 Mg Tab, 1 TAB PO DAILY, TAB 08/01/17 Information Source: Patient, Emergency Med Personnel Mode of Arrival: EMS Severity: Moderate Timing: Minutes Duration: Minutes Prehospital treatment: 12 Lead EKG Past Medical History PAST MEDICAL HISTORY: Anxiety, CAD, CHF, COPD, Depression, DM, High Lipids, HTN Surgical History: CABG Family History Family History: No family hx of DM, No family hx of Heart victorina, No family hx of HTN Social History Smoker: Non-Smoker Alcohol: Denies ETOH Use Drugs: Denies Drug Use Lives In: Home Constitutional: denies: chills, diaphoresis, fatigue, fever, malaise, sweats, weakness, others EENTM: denies: blurred vision, double vision, ear bleeding, ear discharge, ear drainage, ear pain, ear ringing, eye pain, eye redness, hearing loss, mouth pain, mouth swelling, nasal discharge, nose bleeding, nose congestion, nose pain, photophobia, tearing, throat pain, throat swelling, voice changes, others Respiratory: denies: cough, hemoptysis, orthopnea, SOB at rest, shortness of breath, SOB with excertion, stridor, wheezing, others Cardiovascular: denies: chest pain, dizzy spells, diaphoresis, Dyspnea on exertion, edema, irregular heart beat, left arm pain, lightheadedness, palpitations, PND, syncope, others Gastrointestinal: denies: abdomen distended, abdominal pain, blood streaked bowels, constipated, diarrhea, dysphagia, difficulty swallowing, hematemesis, melena, nausea, poor appetite, poor fluid intake, rectal bleeding, rectal pain, vomiting, others Genitourinary: denies: burning, dysuria, flank pain, frequency, hematuria, incontinence, penile discharge, penile sore, pain, testicle pain, testicle swelling, urgency, others Neurological: reports: tremors; denies: dizziness, fainting, headache, left sided numbness, left sided weakness, numbness, paresthesia, pre-existing deficit, right sided numbness, right sided weakness, seizure, speech problems, tingling, weakness, others Musculoskeletal: denies: back pain, gout, joint pain, joint swelling, muscle pain, muscle stiffness, neck pain, others Integumetry: denies: bruises, change in color, change in hair/nails, dryness, laceration, lesions, lumps, rash, wounds, others Allergic/Immunocompromised: denies: Difficulty Healing, Frequent Infections, Hives, Itching, others Hematologic/Lymphatic: denies: anemia, blood clots, easy bleeding, easy bruising, swollen glands, others Endocrine: denies: excessive hunger, excessive sweating, excessive thirst, excessive urination, flushing, intolerance to cold, intolerance to heat, unexplained weight gain, unexplained weight loss, others Psychiatric: denies: anxiety, bipolar disorder, depression, hopeless, panic disorder, schizophrenia, sleepless, suicidal, others Physical Exam General Appearance: No Apparent Distress (Patient was in no distress at time of evaluation.), Normal HEENT: Normal ENT Inspection, Pharynx Normal, TMs Normal Neck: Full Range of Motion, Non-Tender, Normal, Normal Inspection Respiratory: Chest Non-Tender, Lungs Clear, No Accessory Muscle Use, No Respiratory Distress, Normal Breath Sounds Cardiovascular: Bradycardia, No Edema, No JVD, No Murmur, No Gallop, Normal Peripheral Pulses Breast Exam: Deferred Gastrointestinal: No Organomegaly, Non Tender, No Pulsatile Mass, Normal Bowel Sounds, Soft Genitalia: Deferred Pelvic: Deferred Rectal: Deferred Extremities: Normal capillary refill, No pedal edema Neurologic: Alert Cerebellar Function: NOT DONE Reflexes: NOT DONE Skin: Dry, Normal Color, Warm Lymphatic: No Adenopathy Was a procedure done? Was a procedure done?: No Differential Dx Considerations may include: Sepsis, electrolyte abnormality, acute coronary syndrome X-Ray, Labs, Meds, VS Vital Signs Date Time Temp Pulse Resp B/P (MAP) Pulse Ox O2 Delivery O2 Flow Rate FiO2 02/08/25 16:13 59 02/08/25 15:16 98.8 60 16 155/71 95 98.8 Lab Test 02/08/25 18:55 02/08/25 17:35 02/08/25 16:46 02/08/25 15:22 Range/Units Troponin I High Sensitivity 49 49 51 </=54 ng/L Urine Color Light-yellow Yellow Urine Clarity Clear Clear Urine pH 7.0 5.0-9.0 Urine Specific [place] 1.011 1.001-1.035 Urine Protein Negative Negative Urine Ketones Negative Negative Urine Blood Trace H Negative /uL Urine Nitrite Negative Negative Urine Bilirubin Negative Negative Urine Urobilinogen Normal Negative mg/dL Urine Leukocyte Esterase Negative Negative /uL Urine RBC 30 0 - 3 /hpf Urine Microscopic WBC 1 0-3 /HPF Urine Squamous Epithelial Cells None seen <5 /hpf Urine Bacteria None seen None Seen /hpf Urine Hyaline Casts Few 0 - 2 /lpf Urine Glucose Normal Normal mg/dL White Blood Count 8.7 # 4.4-10.8 10^3/uL Red Blood Count 4.02 L 4.5-5.90 10^6/uL Hemoglobin 12.5 L 13.5-17.5 g/dL Hematocrit 37.5 #L 41.0-53.0 % Mean Corpuscular Volume 93.3 80.0-100.0 fL Mean Corpuscular Hemoglobin 31.1 28.0-32.0 pg Mean Corpuscular Hemoglobin Concent 33.4 32.0-36.0 g/dL Red Cell Distribution Width 14.9 H 11.8-14.3 % Platelet Count 163 140-450 10^3/uL Mean Platelet Volume 7.9 6.9-10.8 fL Neutrophils (%) (Auto) 73.5 37.0-80.0 % Lymphocytes (%) (Auto) 16.0 10.0-50.0 % Monocytes (%) (Auto) 7.2 0.0-12.0 % Eosinophils (%) (Auto) 2.6 0.0-7.0 % Basophils (%) (Auto) 0.7 0.0-2.0 % Neutrophils # (Auto) 6.4 1.6-8.6 10 ^3/uL Lymphocytes # (Auto) 1.4 0.4-5.4 10 ^3/uL Monocytes # (Auto) 0.6 0-1.3 10 ^3/uL Eosinophils # (Auto) 0.2 0-0.8 10 ^3/uL Basophils # (Auto) 0.1 0-0.2 10 ^3/uL Nucleated Red Blood Cells 0.0 % Sodium Level 140 136-145 mmol/L Potassium Level 4.7 3.5-5.1 mmol/L Chloride Level 102 98-107 mmol/L Carbon Dioxide Level 32 H 20-31 mmol/L Anion Gap 6 5-15 Blood Urea Nitrogen 40 H 9-23 mg/dL Creatinine 1.76 H 0.700-1.30 mg/dL Glomerular Filtration Rate Calc 37 >90 mL/min BUN/Creatinine Ratio 22.7 H 10.0-20.0 Serum Glucose 127 H 74-106 mg/dL Lactic Acid Level 1.1 0.4-2.0 mmol/L Calcium Level 8.9 8.7-10.4 mg/dL Total Bilirubin 0.3 0.2-1.0 mg/dL Aspartate Amino Transferase (AST) 34 13-40 U/L Alanine Aminotransferase (ALT) 41 H 7-40 U/L Alkaline Phosphatase 69 46-116 U/L B-Type Natriuretic Peptide 158.15 0-100 pg/mL Total Protein 6.4 5.7-8.2 g/dL Albumin 4.1 3.2-4.8 g/dL X-Ray, Labs, Meds, VS Comment All studies performed the ED were evaluated by me. Serum studies revealed an anemic state, what appears to be acute on chronic renal concerns as well as hematuria in his urine. EKG revealed a sinus rhythm with a rate of 59. Prolonged VT interval, probable left atrial enlargement and nonspecific T-wave abnormalities. VT interval of 233 and QT interval of 434. Due to the patient's bradycardic state and questionable EKG as well as renal concerns, patient will be transferred to [facility] for continued management. Spoke with a Dr. Mini Vogt at [facility]. Advised her of patient presentation as well as study results from our facility. She advised with the patient has chronic conditions that are related to all results that were gleaned today. She will send the patient for outpatient follow up next week. Additionally, she was sent of ambulance ground transportation back to his home. Authorization number is [id number]. Time of 1ST Reevaluation: 19:35 Reevaluation 1ST: Unchanged Consultation: PCP, Cardiology Patient Education/Counseling: Diagnosis, Treatment Family Education/Counseling: Diagnosis, Treatment SEPSIS Sepsis Screen Date sepsis recognized/suspect: Feb 08, 2025 Time Sepsis recognized/suspect: 1516 Recent Procedure: No On Antibiotic Therapy: No Respiratory Rate >20: No Heart Rate >90: Yes Temp<36 C (96.8 F) or >38.3 C: No SBP <90 or MAP <65 mmHG: No New Acute Mental Status Change: No Is the patient on CPAP, BIPAP,: No Physician Orders Sodium Chloride 0.9% (02/08/25 15:30) Heplock Iv (02/08/25 ) Straightcath If Unable To Void (02/08/25 15:16) Electrocardigram (02/08/25 15:19) Vital Signs Date Time Temp Pulse Resp B/P (MAP) Pulse Ox O2 Delivery O2 Flow Rate FiO2 02/08/25 16:13 59 02/08/25 15:16 98.8 60 16 155/71 95 98.8 Laboratory Tests Test 02/08/25 15:22 Lactic Acid Level 1.1 mmol/L (0.4-2.0) White Blood Count 8.7 10^3/uL (4.4-10.8) # Departure 1 Departure Time of Disposition: 19:36 Impression: Primary Impression: [id number] kidney injury Additional Impressions: Bradycardia Hematuria Anemia Disposition: 01 HOME / SELF CARE / HOMELESS Condition: Stable Discharged With: Self Critical Care Note Critical Care Time?: No Stability Stability form required: No Heart Score Heart Score: Heart Score Response (Comments) Value History Slightly Suspicious 0 EKG Repolarization Disturb 1 Age >65 2 Risk Factors 1 or 2 risk factors 1 Troponin Normal limit 0 Total 4 MAIRA FORREST PAC Feb 08, 2025 19:37
[2025-02-08 20:25] VITALS: PULSE 85; RESP 18
[2025-02-08 20:27] VITALS: BP 163/73; PULSE 85; RESP 18; TEMP 98.7; O2SAT 97
--- NOTE | 2025-02-09 18:46 | ECG ---
[facility] Test Date: 2025-02-08 Test Time: 16:13:01 Pat Name: PRIETO GARCIA Department: ED Room: Gender: M Security Nurse: GV : 1935 Requested By: MAIRA FORREST Order Number: [id number] Reading MD: Miguel To Measurements Intervals [place] Rate: 59 P: 0 VT: 233 QRS: 40 QRSD: 110 T: 97 QT: 434 QTc: 430 Interpretive Statements Sinus rhythm Prolonged VT interval Probable left atrial enlargement Nonspecific T abnormalities, lateral leads Electronically Signed On 02-09-2025 22:08:16 PDT by Miguel To Please click the below link to view image of tracing.
== END 2025-02-08 21:09 | disposition home or self-care (01) ==
LOC: ER 15:10 → EDUNIT# 15:10 → EDBD 15:10 → ER 21:09
DX: N17.9 Acute kidney failure, unspecified (principal); R31.9 Hematuria, unspecified; D64.9 Anemia, unspecified; R00.1 Bradycardia, unspecified; I11.0 Hypertensive heart disease with heart failure; I50.9 Heart failure, unspecified; J44.9 Chronic obstructive pulmonary disease, unspecified; E11.9 Type 2 diabetes mellitus without complications; F32.A Depression, unspecified; E78.5 Hyperlipidemia, unspecified; F41.9 Anxiety disorder, unspecified; I25.10 Atherosclerotic heart disease of native coronary artery without angina pectoris; Z95.1 Presence of aortocoronary bypass graft; Z79.82 Long term (current) use of aspirin; Z79.899 Other long term (current) drug therapy
CPT/HCPCS: 36415; 80053; 81001; 83605; 83880; 84484; 85025; 93005

== ENCOUNTER 2025-02-17 12:28 | Inpatient (IN) | payer OTHER ==
[~2025-02-17] VITALS: Ht 170.2 cm; Wt 72.7 kg
--- NOTE | 2025-02-17 12:44 | ED.PDOC ---
HPI (NEURO) HPI Comments 89-year-old male presents with a chief complaint of dizziness s/p straining on toilet seat at home. Patient states that he has been constipated and was straining while trying to have a bowel movement. Patient reports that he then became dizzy, but had no fall or syncopal episode. Patients vital signs were all within normal limits. Patient blood sugar was 111 per EMS. I was later informed that the patient used to be on hospice. PMHx: HLD, CKF, CAD, CHF, COPD, DM, ANXIETY, Dementia PSHx: CABG HPI: Poor Historian. carwile: dizzy while on toilet straining , constipation REVIEW OF SYSTEMS: CONSTITUTIONAL: Denies acute: fever, diaphoresis, chills, generalized weakness. HEAD: Denies acute: headache, photophobia Eyes: Denies acute: Double vision, vision loss, eye pain, eye discharge. EARS: Denies acute: tinnitus, hearing loss, ear discharge, ear pain, THROAT: Denies acute: sore throat, swelling, difficulty swallowing , pain with swall owing, change in voice. NECK: Denies acute: neck pain, neck swelling, stiff neck. HEART: Denies acute : chest pain, palpitations, LUNGS: Denies acute: SOB, wheezing, cough, hemoptysis ABDOMEN: Denies acute: abdominal pain, Nausea, Vomiting, diarrhea, melena , hematemesis, hematochezia SKIN: Denies acute: rash, redness, lesions, itchiness. EXTREMITIES: Denies acute: calf pain, numbness, tingling, weakness, denies pain in extremity. Denies acute: Low back pain. Neuro: Denies acute: focal neurological deficit, motor or sensory focal neurological deficit, tremors, seizure like activity, confusion, dizziness, change in mental status, loss of bowel or bladder function, cauda equina like symptoms. : Denies acute: dysuria, hematuria, flank pain, increase in urinary frequency. PSYCH: Denies acute: hallucination, suicidal ideation, homicidal ideation. PHYSICAL EXAM: General: ---no-----acute distress, awake and alert. Head: normocephalic, atraumatic. Neck: supple, trachea is midline, no swelling. Throat: Normal phonation. Dry oral mucosa Eyes:, no erythema, no purulent discharge, no proptosis, no icterus. Heart: regular rate, regular rhythm, no significant murmur appreciated. Lungs: no apparent respiratory distress, Able to speak in full sentences. No wheezing, no rhonchi, no crackles. No stridors Clear to auscultation bilaterally. Abdomen: non tender to palpation, non distended, soft, no guarding, no rebound, + bowel sounds. Neuro: Awake, Alert, oriented to name, self, situation, follows commands GCS=15. Speech is normal. Skin: no petechia, no purpura, no cyanosis, non-pale, not jaundice. Lower extremities: --no - Pitting edema no deformity, no focal swelling, no calf TTP. Makes eye contact. moves all four extremities. Face: no apparent facial droop. ED COURSE: DISCLAIMER: This medical document was created using an electronic medical record system with voice recognition software and computerized dictation system. Although this document has been carefully reviewed, there might still be some phonetic and typographical errors. Occasional wrong-word or "sound-alike" substitutions may have occurred due to the inherent limitations of voice recognition software. These areas are purely typographical due to imperfections of the software programs and do not reflect any compromise in the patient's medical care. Please read the chart carefully and recognize, using context, where these substitutions have occurred. Time Seen by MD: 12:36 Primary Care Provider: [facility] So Notes: Medications, Allergies Information Source: Patient Mode of Arrival: EMS Past Medical History PAST MEDICAL HISTORY: Anxiety, CAD, CHF, COPD, Depression, DM, High Lipids, HTN Surgical History: CABG Family History Family History: No family hx of DM, No family hx of Heart victorina, No family hx of HTN Social History Smoker: Non-Smoker Alcohol: Denies ETOH Use Drugs: Denies Drug Use Lives In: Home Was a procedure done? Was a procedure done?: No Differential Diagnosis (SZ) General Weakness: Anemia, CVA, Dehydration, Dysrhythmia, Electrolyte imbalance, Encephalopathy, Guillain-Mathews, Hypoglycemia, Hypotension, Hypovolemia, Labyrinthitis, Meniere's disease, Myasthenia gravis, Myocardial infarction, Pulmonary embolus, Renal failure, Repiratory failure, TIA, VBI, Vertigo: central, Vertigo: peripheral, Vestibular neuronitis X-Ray, Labs, Meds, VS Vital Signs Date Time Temp Pulse Resp B/P (MAP) Pulse Ox O2 Delivery O2 Flow Rate FiO2 02/17/25 12:42 56 02/17/25 12:32 97.8 68 15 143/66 94 97.8 Lab Test 02/17/25 18:30 02/17/25 17:40 02/17/25 15:31 02/17/25 14:14 Range/Units Urine Color Yellow Yellow Urine Clarity Turbid H Clear Urine pH 6.0 5.0-9.0 Urine Specific [place] 1.019 1.001-1.035 Urine Protein 1+ H Negative Urine Ketones Negative Negative Urine Blood 1+ H Negative /uL Urine Nitrite Negative Negative Urine Bilirubin Negative Negative Urine Urobilinogen Normal Negative mg/dL Urine Leukocyte Esterase 1+ Negative /uL Urine RBC 26 0 - 3 /hpf Urine Microscopic WBC 16 H 0-3 /HPF Urine Squamous Epithelial Cells Few <5 /hpf Urine Bacteria None seen None Seen /hpf Urine Hyaline Casts Few 0 - 2 /lpf Urine Yeast (Budding) Occasional None Seen /hpf Urine Glucose Normal Normal mg/dL Troponin I High Sensitivity 97 *H 102 *H 99 *H </=54 ng/L White Blood Count 8.2 4.4-10.8 10^3/uL Red Blood Count 4.52 4.5-5.90 10^6/uL Hemoglobin 14.1 13.5-17.5 g/dL Hematocrit 42.1 41.0-53.0 % Mean Corpuscular Volume 93.2 80.0-100.0 fL Mean Corpuscular Hemoglobin 31.3 28.0-32.0 pg Mean Corpuscular Hemoglobin Concent 33.6 32.0-36.0 g/dL Red Cell Distribution Width 14.9 H 11.8-14.3 % Platelet Count 159 140-450 10^3/uL Mean Platelet Volume 8.3 6.9-10.8 fL Neutrophils (%) (Auto) 74.8 37.0-80.0 % Lymphocytes (%) (Auto) 15.7 10.0-50.0 % Monocytes (%) (Auto) 7.8 0.0-12.0 % Eosinophils (%) (Auto) 0.9 0.0-7.0 % Basophils (%) (Auto) 0.8 0.0-2.0 % Neutrophils # (Auto) 6.1 1.6-8.6 10 ^3/uL Lymphocytes # (Auto) 1.3 0.4-5.4 10 ^3/uL Monocytes # (Auto) 0.6 0-1.3 10 ^3/uL Eosinophils # (Auto) 0.1 0-0.8 10 ^3/uL Basophils # (Auto) 0.1 0-0.2 10 ^3/uL Nucleated Red Blood Cells 0.1 % Sodium Level 139 136-145 mmol/L Potassium Level 4.0 3.5-5.1 mmol/L Chloride Level 100 98-107 mmol/L Carbon Dioxide Level 31 20-31 mmol/L Anion Gap 8 5-15 Blood Urea Nitrogen 41 H 9-23 mg/dL Creatinine 1.88 H 0.700-1.30 mg/dL Glomerular Filtration Rate Calc 34 >90 mL/min BUN/Creatinine Ratio 21.8 H 10.0-20.0 Serum Glucose 110 H 74-106 mg/dL Lactic Acid Level 1.1 0.4-2.0 mmol/L Calcium Level 8.9 8.7-10.4 mg/dL Total Bilirubin 0.6 0.2-1.0 mg/dL Aspartate Amino Transferase (AST) 100 H 13-40 U/L Alanine Aminotransferase (ALT) 127 H 7-40 U/L Alkaline Phosphatase 72 46-116 U/L B-Type Natriuretic Peptide 223.96 0-100 pg/mL Total Protein 7.2 5.7-8.2 g/dL Albumin 4.5 3.2-4.8 g/dL Test 02/17/25 12:38 Range/Units POC Glucose 103 70-106 mg/dl [address] [address] Ph: [phone] DIAGNOSTIC IMAGING Diagnostic Imaging Report : [id number] Signed PATIENT: PRIETO GARCIA ACCT: [id number] UNIT: [id number] : 1935 LOC: ER ROOM / BED: / AGE / SEX: 89 / M ADM STATUS: REG ER SERVICE [id number] ORDERING PHYSICIAN: ROXANNE LAWRENCE DO PROCEDURE(s): CXRP - CHEST PORTABLE REASON: dizzy episode ORDER NUMBER(s): [id number], ACCESSION NUMBER(s): [id number] CHEST RADIOGRAPH Indication: dizzy episode Technique: Single frontal view of the chest was obtained COMPARISON: None FINDINGS: Lines and Tubes: Median sternotomy Lungs: Clear Pleura: No effusion. No pneumothorax. Cardiomediastinal contours: Unremarkable Bones: Unremarkable IMPRESSION: No acute disease. ATED BY: HAYDER GEE MD DICTATED DATE/TIME: 02/17/25 134 SIGNED BY: HAYDER GEE MD SIGNED DATE/TIME: 02/17/25 134 Time of 1ST Reevaluation: 13:06 Reevaluation 1ST: Unchanged Time of 2ND Reevaluation: 18:54 (The case was discussed with the [place] admitting team (HPI, physical exam, labs and diagnostic tests that were available at the time of disposition, ED course, treatment plan) on the phone. They agreed to authorized us to keep the patient in our facility for further evaluation and treatment since his troponin is elevated and is not trending down. --wero-. Authorization number [id number]. Patient had an echocardiogram in July of this year and was 60-65% ejection fraction. Grade 2 diastolic dysfunction. Patient's creatinine is at baseline. Per [place] doctor) Reevaluation 2ND: Improved Patient Education/Counseling: Diagnosis, Treatment Family Education/Counseling: No Family Present Comments MDM: patient presented with the above HPI.---dizziness episode---workup was initiated. patient was found with the above mentioned diagnosis. the following medications were ordered: please refer to order lists of meds and tests obtained by myself Dr. Lawrence. Patient ED course and VS have been stabilized. Patient has been reassessed in the ED and remained in a stable condition. Pertinent incidental findings were discussed with the patient and/or family. Patient/family voices understanding and is agreeable with plan. Patient has been observed in the ED adequate length of time to insure improvement/stability. Escalation of care considered: Consideration of escalation to observation or admission Patient was ADMITTED to the medicine team for further evaluation and treatment of their presentation. All the reports of any imaging studies that were ordered by myself were reviewed by myself. Departure 1 Departure Time of Disposition: 14:46 Impression: Primary Impression: Elevated troponin Additional Impressions: Dizziness Generalized weakness Elevated LFTs Disposition: ADMITTED INPATIENT Admit to: Tele Condition: Guarded Discharged With: Self Critical Care Note Critical Care Time?: Yes (45 min-critical care time only) I personally scribed for ROXANNE LAWRENCE DO ([email or web address]) on 02/17/25 at 12:44. Electronically submitted by Perico Hoffman ([email or web address]). I personally scribed for ROXANNE LAWRENCE DO ([email or web address]) on 02/17/25 at 16:10. Electronically submitted by Perico Hoffman ([email or web address]). I personally scribed for ROXANNE LAWRENCE DO ([email or web address]) on 02/17/25 at 19:30. Electronically submitted by Perico Hoffman ([email or web address]). ROXANNE LAWRENCE DO Feb 17, 2025 12:44
--- NOTE | 2025-02-17 13:45 | DVH ---
CHEST RADIOGRAPH Indication: dizzy episode Technique: Single frontal view of the chest was obtained COMPARISON: None FINDINGS: Lines and Tubes: Median sternotomy Lungs: Clear Pleura: No effusion. No pneumothorax. Cardiomediastinal contours: Unremarkable Bones: Unremarkable IMPRESSION: No acute disease.
[2025-02-17 14:23] LABS: Hematocrit 42.1 % (41.0-53.0); Hemoglobin 14.1 g/dL (13.5-17.5); Mean Corpuscular Hemoglobin 31.3 pg (28.0-32.0); Mean Corpuscular Volume 93.2 fL (80.0-100.0); Nucleated Red Blood Cells % 0.1 %
[2025-02-17 14:37] LABS: Albumin 4.5 g/dL (3.2-4.8); Alkaline Phosphatase 72 U/L (46-116); Anion Gap 8 (5-15); BUN/Creatinine Ratio 21.8 (10.0-20.0); Calcium 8.9 mg/dL (8.7-10.4); Chloride 100 mmol/L (98-107); Potassium 4.0 mmol/L (3.5-5.1); Sodium 139 mmol/L (136-145); Total Protein 7.2 g/dL (5.7-8.2)
[2025-02-17 14:38] LABS: Bilirubin, Total 0.6 mg/dL (0.2-1.0)
[2025-02-17 14:42] LABS: Alanine Aminotransferase 127 U/L (7-40); Blood Urea Nitrogen 41 mg/dL (9-23); Carbon Dioxide 31 mmol/L (20-31); Glucose 110 mg/dL (74-106)
[2025-02-17] MEDS: SODIUM CHLORIDE 0.9% 1,000 ML IV ONE (18:02)
[2025-02-17 18:54] LABS: Urine Budding Yeast OCCASIONAL /hpf (None Seen); Urine Protein, UAD 1+ (Negative)
[2025-02-17] MEDS ORDERED: ONDANSETRON HCL 4 MG/2 ML VIAL IV PRN (19:15)
[2025-02-17] MEDS ORDERED: NITROGLYCERIN 0.4 MG SL TAB SL PRN (19:15)
[2025-02-17] MEDS ORDERED: MORPHINE SULFATE INJ 2 MG/ml SYRG IV PRN (19:15)
[2025-02-17] MEDS ORDERED: ACETAMINOPHEN 325 MG TAB PO PRN (19:15)
[2025-02-17] MEDS: cefTRIAXone 1GM/50ML D5W 50 ML IV SCH (20:55)
[2025-02-17 21:56] VITALS: BP 173/80; PULSE 55; RESP 17; TEMP 97.6; O2SAT 97
[2025-02-17] MEDS: ISOSORBIDE MONONITRATE 20 MG TAB PO SCH (22:00)
[2025-02-17 22:11] VITALS: PULSE 53; RESP 17; O2SAT 97
[2025-02-17] MEDS ORDERED: CLON-853 PO (22:11)
[2025-02-17] MEDS ORDERED: ISOS1TAB28 PO (22:11)
[2025-02-17] MEDS ORDERED: FURO20TA4 PO (22:11)
[2025-02-17] MEDS ORDERED: LACT10SO3 PO (22:11)
[2025-02-17] MEDS ORDERED: SERT25TA28 PO (22:11)
[2025-02-17] MEDS ORDERED: POTA-215 PO (22:11)
[2025-02-17] MEDS ORDERED: ALLO100T PO (22:11)
[2025-02-17] MEDS ORDERED: TAMS0.4C39 PO (22:11)
[2025-02-17] MEDS ORDERED: ATOR20TA50 PO (22:11)
[2025-02-17] MEDS: ATORVASTATIN 20 MG TAB PO SCH (22:56)
[2025-02-18] VITALS (8 sets, daily range): BP systolic 132–189; BP diastolic 52–92; PULSE 44–65; RESP 17–19; TEMP 97.6–98.9; O2SAT 94–97
--- NOTE | 2025-02-18 00:56 | DVHHP2 ---
History of Present Illness Reason for Visit: Generalized weakness History of Present Illness 89-year-old male presents for evaluation of generalized weakness. Patient presented for evaluation generalized weakness and fatigue. Patient is reports not wanting to get out of bed for the past couple of days and also has been having decreased appetite. No complaints of chest pain or palpitations. No unilateral weakness. Past Medical History COPD, CHF recurrent CAD, chronic kidney disease,? Dementia Past Surgical History CABG Family History Noncontributory Smoke: No ALCOHOL: none Drugs: None Lives: with Family Review of Systems Review of Systems Review of systems are limited due to the patient's altered mental status. Allergies: Coded Allergies: Bacitracin (Verified Allergy, Unknown, 02/05/16) Neomycin (Verified Allergy, Unknown, 02/05/16) Polymyxin B (Verified Allergy, Unknown, 02/05/16) Medications Current Medications Medications Dose Ordered Sig/Marly Route Start Time Stop Time Status Last Admin Dose Admin Aspirin 81 mg DAILY PO 02/18/25 10:00 Ceftriaxone Sodium 50 ml @ 100 mls/hr DAILY@09 IV 02/17/25 19:49 02/17/25 20:55 100 MLS/HR Furosemide 40 mg DAILY PO 02/18/25 10:00 Allopurinol 100 mg DAILY PO 02/18/25 10:00 Isosorbide Mononitrate 20 mg BID PO 02/17/25 22:00 02/17/25 22:00 20 MG Atorvastatin Calcium 20 mg HS PO 02/17/25 22:00 02/17/25 22:56 20 MG Tamsulosin HCl 0.4 mg QPM PO 02/18/25 18:00 Ondansetron HCl 4 mg Q4HP PRN IV 02/17/25 19:15 Enoxaparin Sodium 30 mg DAILY SC 02/18/25 10:00 Acetaminophen 650 mg Q6HP PRN PO 02/17/25 19:15 Nitroglycerin 0.4 mg Q5MINP PRN SL 02/17/25 19:15 Morphine Sulfate 2 mg Q30M PRN IV 02/17/25 19:15 Exam Vital Signs Vital Signs Date Time Temp Pulse Resp B/P (MAP) Pulse Ox O2 Delivery O2 Flow Rate FiO2 02/17/25 22:11 53 17 97 Room Air* 0 21 02/17/25 22:00 163/80 02/17/25 21:56 97.6 97.6 Exam Gen: 89-year-old male mild distress Skin: Warm, dry, normal color and texture, no rash. HEENT: Normocephalic atraumatic, mucous membranes moist and pink. Neck: Cervical and supraclavicular nodes normal without enlargement, trachea is midline, thyroid gland is normal without masses. Pulmonary: Clear to auscultation and percussion bilaterally. Cardiac: Regular rate and rhythm. No murmur Abdomen: Soft, nontender, nondistended, bowel sounds present all 4 quadrants, no guarding, no rigidity, no organomegaly. Extremities: No cyanosis, clubbing, no edema Neuro: Cranial nerves II through XII grossly intact, normal affect and speech, no focal motor deficits. Labs/Xrays ORDERING PHYSICIAN: ROXANNE LAWRENCE DO PROCEDURE(s): CXRP - CHEST PORTABLE REASON: dizzy episode ORDER NUMBER(s): [id number], ACCESSION NUMBER(s): [id number] CHEST RADIOGRAPH Indication: dizzy episode Technique: Single frontal view of the chest was obtained COMPARISON: None FINDINGS: Lines and Tubes: Median sternotomy Lungs: Clear Pleura: No effusion. No pneumothorax. Cardiomediastinal contours: Unremarkable Bones: Unremarkable IMPRESSION: No acute disease. Labs Test 02/17/25 18:30 02/17/25 17:40 02/17/25 14:14 02/17/25 12:38 Range/Units Urine Color Yellow Yellow Urine Clarity Turbid H Clear Urine pH 6.0 5.0-9.0 Urine Specific [place] 1.019 1.001-1.035 Urine Protein 1+ H Negative Urine Ketones Negative Negative Urine Blood 1+ H Negative /uL Urine Nitrite Negative Negative Urine Bilirubin Negative Negative Urine Urobilinogen Normal Negative mg/dL Urine Leukocyte Esterase 1+ Negative /uL Urine RBC 26 0 - 3 /hpf Urine Microscopic WBC 16 H 0-3 /HPF Urine Squamous Epithelial Cells Few <5 /hpf Urine Bacteria None seen None Seen /hpf Urine Hyaline Casts Few 0 - 2 /lpf Urine Yeast (Budding) Occasional None Seen /hpf Urine Glucose Normal Normal mg/dL Troponin I High Sensitivity 97 *H </=54 ng/L White Blood Count 8.2 4.4-10.8 10^3/uL Red Blood Count 4.52 4.5-5.90 10^6/uL Hemoglobin 14.1 13.5-17.5 g/dL Hematocrit 42.1 41.0-53.0 % Mean Corpuscular Volume 93.2 80.0-100.0 fL Mean Corpuscular Hemoglobin 31.3 28.0-32.0 pg Mean Corpuscular Hemoglobin Concent 33.6 32.0-36.0 g/dL Red Cell Distribution Width 14.9 H 11.8-14.3 % Platelet Count 159 140-450 10^3/uL Mean Platelet Volume 8.3 6.9-10.8 fL Neutrophils (%) (Auto) 74.8 37.0-80.0 % Lymphocytes (%) (Auto) 15.7 10.0-50.0 % Monocytes (%) (Auto) 7.8 0.0-12.0 % Eosinophils (%) (Auto) 0.9 0.0-7.0 % Basophils (%) (Auto) 0.8 0.0-2.0 % Neutrophils # (Auto) 6.1 1.6-8.6 10 ^3/uL Lymphocytes # (Auto) 1.3 0.4-5.4 10 ^3/uL Monocytes # (Auto) 0.6 0-1.3 10 ^3/uL Eosinophils # (Auto) 0.1 0-0.8 10 ^3/uL Basophils # (Auto) 0.1 0-0.2 10 ^3/uL Nucleated Red Blood Cells 0.1 % Sodium Level 139 136-145 mmol/L Potassium Level 4.0 3.5-5.1 mmol/L Chloride Level 100 98-107 mmol/L Carbon Dioxide Level 31 20-31 mmol/L Anion Gap 8 5-15 Blood Urea Nitrogen 41 H 9-23 mg/dL Creatinine 1.88 H 0.700-1.30 mg/dL Glomerular Filtration Rate Calc 34 >90 mL/min BUN/Creatinine Ratio 21.8 H 10.0-20.0 Serum Glucose 110 H 74-106 mg/dL Lactic Acid Level 1.1 0.4-2.0 mmol/L Calcium Level 8.9 8.7-10.4 mg/dL Total Bilirubin 0.6 0.2-1.0 mg/dL Aspartate Amino Transferase (AST) 100 H 13-40 U/L Alanine Aminotransferase (ALT) 127 H 7-40 U/L Alkaline Phosphatase 72 46-116 U/L B-Type Natriuretic Peptide 223.96 0-100 pg/mL Total Protein 7.2 5.7-8.2 g/dL Albumin 4.5 3.2-4.8 g/dL POC Glucose 103 70-106 mg/dl SEPSIS Sepsis Screen Date sepsis recognized/suspect: Feb 17, 2025 Time Sepsis recognized/suspect: 1231 Recent Procedure: No On Antibiotic Therapy: No Respiratory Rate >20: No Heart Rate >90: No Temp<36 C (96.8 F) or >38.3 C: No SBP <90 or MAP <65 mmHG: No New Acute Mental Status Change: No Is the patient on CPAP, BIPAP,: No Physician Orders * Cardiology Consult (02/17/25 19:10) Aspirin Tablet (02/18/25 10:00) Furosemide Tablet (Lasix Tablet) (02/18/25 10:00) Allopurinol Tablet (Zyloprim Tablet) (02/18/25 10:00) Isosorbide Mononitrate Tablet (Ismo Tab (02/17/25 22:00) Atorvastatin (Lipitor) (02/17/25 22:00) Tamsulosin Hydrochloride (Flomax) (02/18/25 18:00) Basic Metabolic Panel (02/18/25 04:00) Admit (02/17/25 19:10) Ondansetron Hcl (Zofran) (02/17/25 19:15) Complete Blood Count (02/18/25 04:00) Cardiac Diet-2gna,Lofat,Lochol (02/18/25 Breakfast) Echo 2d Mode Cardiac Dop (02/17/25 19:10) Condition: Fair (02/17/25 19:10) Enoxaparin Sodium (Lovenox) (02/18/25 10:00) Acetaminophen Tablet (Tylenol Tablet) (02/17/25 19:15) Bedrest With Bathroom Privileg (02/17/25 19:10) Nitroglycerin Sublingual (Ntrostat Subli (02/17/25 19:15) Morphine Sulfate Injection (02/17/25 19:15) Stat Ekg For Chest Pain (02/17/25 19:10) Notify Of Changes From Base (02/17/25 19:10) Lockmaker For 24 Hours (02/17/25 19:10) Emergency Dysrhythmia Protocol (02/17/25 19:10) Rhythm Strips Once Every Shift (02/17/25 19:10) Oxygen By Nasal Cannula (02/17/25 19:10) Ceftriaxone 1gm/50ml D5w (Rocephin) (02/17/25 19:49) Vital Signs Date Time Temp Pulse Resp B/P (MAP) Pulse Ox O2 Delivery O2 Flow Rate FiO2 02/17/25 22:11 53 17 97 Room Air* 0 21 02/17/25 22:00 163/80 02/17/25 21:56 97.6 55 17 173/80 (111) 97 97.6 Laboratory Tests Test 02/17/25 14:14 Lactic Acid Level 1.1 mmol/L (0.4-2.0) White Blood Count 8.2 10^3/uL (4.4-10.8) Medications Medications Dose Ordered Sig/Marly Route Start Time Stop Time Status Last Admin Dose Admin Aspirin 325 mg ONCE ONCE PO 02/17/25 15:00 02/17/25 15:01 DC 02/17/25 15:00 325 MG Atorvastatin Calcium 20 mg HS PO 02/17/25 22:00 02/17/25 22:56 20 MG Ceftriaxone Sodium 50 ml @ 100 mls/hr DAILY@09 IV 02/17/25 19:49 02/17/25 20:55 100 MLS/HR Isosorbide Mononitrate 20 mg BID PO 02/17/25 22:00 02/17/25 22:00 20 MG Sodium Chloride 1,000 ml @ 1,000 mls/hr Q1H ONCE IV 02/17/25 17:45 02/17/25 18:44 DC 02/17/25 18:02 1,000 MLS/HR Assessment/Plan Assessment/Plan Assessment Metabolic encephalopathy Elevated troponin Urinary tract infection Chronic kidney disease ? Dementia Plan Admit the patient to telemetry to the hospitalist Cardiology consultation Rocephin Resume home medications Continue treatment per orders. Plan discussed with: Other My Orders Orders - JAMEY ASIF Procedure Category Date Status Time * Cardiology Consult CONS 02/17/25 Transmitted 19:10 Aspirin Tablet PHA 02/18/25 In Process 10:00 Furosemide Tablet PHA 02/18/25 In Process (Lasix Tablet) 10:00 Allopurinol Tablet PHA 02/18/25 In Process (Zyloprim Tablet) 10:00 Isosorbide PHA 02/17/25 In Process Mononitrate Tablet 22:00 Atorvastatin (Lipitor) PHA 02/17/25 In Process 22:00 Tamsulosin PHA 02/18/25 In Process Hydrochloride (Flomax) 18:00 Basic Metabolic Panel LAB 02/18/25 Logged 04:00 Admit ADMIT 02/17/25 Transmitted 19:10 Ondansetron Hcl PHA 02/17/25 In Process (Zofran) 19:15 Complete Blood Count LAB 02/18/25 Logged 04:00 Cardiac DIET 02/18/25 Transmitted Diet-2gna,Lofat,Lochol Breakfast Echo 2d Mode Cardiac US 02/17/25 Logged DOP 19:10 Condition: Fair LUZ 02/17/25 In Process 19:10 Enoxaparin Sodium PHA 02/18/25 In Process (Lovenox) 10:00 Acetaminophen Tablet PHA 02/17/25 In Process (Tylenol Tablet) 19:15 Bedrest With Bathroom LUZ 02/17/25 In Process Privileg 19:10 Nitroglycerin PHA 02/17/25 In Process Sublingual (Ntrostat 19:15 Morphine Sulfate PHA 02/17/25 In Process Injection 19:15 Stat Ekg For Chest [facility] 02/17/25 In Process Pain 19:10 Notify Md Of Changes [facility] 02/17/25 In Process From Base 19:10 Lockmaker For [facility] 02/17/25 In Process 24 Hours 19:10 Emergency Dysrhythmia [facility] 02/17/25 In Process Protocol 19:10 Rhythm Strips Once [facility] 02/17/25 In Process Every Shift 19:10 Oxygen By Nasal RT 02/17/25 Transmitted Cannula 19:10 Ceftriaxone 1gm/50ml PHA 02/17/25 In Process D5w (Rocephin) 19:49 Date of Service: Feb 17, 2025 Billing Provider: JAMEY ASIF Common Visit Codes: [id number] INP/OBS CARE (HIGH) JAMEY ASIF Feb 18, 2025 00:56
[2025-02-18] MEDS: hydrALAZINE HCL 20 MG/ML VL IV PRN (05:51)
[2025-02-18 07:06] LABS: Chloride 101 mmol/L (98-107); Sodium 139 mmol/L (136-145)
[2025-02-18 07:07] LABS: Anion Gap 8 (5-15); Carbon Dioxide 30 mmol/L (20-31)
[2025-02-18 07:12] LABS: BUN/Creatinine Ratio 21.1 (10.0-20.0); Glucose 103 mg/dL (74-106); Hematocrit 38.3 % (41.0-53.0); Hemoglobin 13.1 g/dL (13.5-17.5); Mean Corpuscular Hemoglobin 31.8 pg (28.0-32.0); Mean Corpuscular Volume 93.0 fL (80.0-100.0); Nucleated Red Blood Cells % 0.1 %
[2025-02-18 07:13] LABS: Blood Urea Nitrogen 36 mg/dL (9-23); Calcium 8.5 mg/dL (8.7-10.4); Potassium 3.5 mmol/L (3.5-5.1)
[2025-02-18] MEDS: FUROSEMIDE 40 MG TAB PO SCH (09:40)
[2025-02-18] MEDS: ENOXAPARIN SOD 30 MG/0.3 ML SYRINGE SC SCH (09:41)
[2025-02-18] MEDS: ALLOPURINOL 100 MG TAB PO SCH (09:41)
--- NOTE | 2025-02-18 11:42 | DVHPN2 ---
Progress Note Date Seen: Feb 18, 2025 Medical Necessity Reason Pt with a Central, PICC or Fol: No Subjective Patient reports: No new complaints Review of Systems: HEENT:Normal, CVS:Normal, RESPIRATORY:Normal, GI:Normal, :Normal, MSK:Normal, NEURO:Normal Objective vital signs Vital Sign Date Time Temp Pulse Resp B/P (MAP) Pulse Ox O2 Delivery O2 Flow Rate FiO2 02/18/25 09:40 146/72 02/18/25 09:00 98.6 62 19 94 98.6 02/17/25 22:11 Room Air* 0 21 Total Intake and Output 02/17/25 02/17/25 02/18/25 15:00 23:00 07:00 Intake Total 1000 ml 100 ml Output Total 500 ml Balance 1000 ml -400 ml medications Current Medications Medications Dose Ordered Sig/Marly Route Start Time Stop Time Status Last Admin Dose Admin Aspirin 81 mg DAILY PO 02/18/25 10:00 02/18/25 09:39 81 MG Ceftriaxone Sodium 50 ml @ 100 mls/hr DAILY@09 IV 02/17/25 19:49 02/18/25 09:41 100 MLS/HR Allopurinol 100 mg DAILY PO 02/18/25 10:00 02/18/25 09:41 100 MG Isosorbide Mononitrate 20 mg BID PO 02/17/25 22:00 02/18/25 09:40 20 MG Atorvastatin Calcium 20 mg HS PO 02/17/25 22:00 02/17/25 22:56 20 MG Tamsulosin HCl 0.4 mg QPM PO 02/18/25 18:00 Ondansetron HCl 4 mg Q4HP PRN IV 02/17/25 19:15 Enoxaparin Sodium 30 mg DAILY SC 02/18/25 10:00 02/18/25 09:41 30 MG Acetaminophen 650 mg Q6HP PRN PO 02/17/25 19:15 Nitroglycerin 0.4 mg Q5MINP PRN SL 02/17/25 19:15 Morphine Sulfate 2 mg Q30M PRN IV 02/17/25 19:15 Hydralazine HCl 10 mg Q6HP PRN IV 02/18/25 05:00 02/18/25 05:51 10 MG Examination: GENERAL:Normal, HEENT:Normal, NECK:Normal, LUNGS:Normal, CVS:Normal, ABDOMEN:Normal, MSK:Normal, SKIN:Normal, NEURO:Normal, NEURO:Abnormal (confused), :Normal laboratory and microbiology Laboratory Tests 02/18/25 06:32 Test 02/18/25 06:32 Range/Units Serum Glucose 103 74-106 mg/dL Problem List/Assessment/Plan Problem List/Assessment/Plan #1 uti ?sepsis: iv rocephin, culture #2 cad s/p cabg #3 nstemi: cardio eval #4 ?dementia #5 copd #6 bph #7 ? acute on chronic renal failure /vasomotor nephropathy #8 transaminitis advance care planning- full code- time spent 18 mins Plan discussed with: Patient My Orders My Orders Orders - JAMEY DUDLEY MD Procedure Category Date Status Time Pt Request For Service PT 02/18/25 Transmitted 11:38 Complete Blood Count LAB 02/19/25 Verified 06:00 Comprehensive LAB 02/19/25 Verified Metabolic Panel 06:00 Vitamin B12 LAB 02/19/25 Verified 06:00 Thyroid Stimulating LAB 02/19/25 Verified Hormone 05:00 Date of Service: Feb 18, 2025 Billing Provider: JAMEY DUDLEY MD Common Visit Codes: [id number] INP/OBS CARE(HIGH) Secondary Visit Codes: [id number] CARE PLAN 30 MINUTES JAMEY DUDLEY MD Feb 18, 2025 11:42
--- NOTE | 2025-02-18 14:18 | DVHINCON2 ---
Date Seen: Feb 18, 2025 Referring Physician XIMENA Lai Reason for Consultation Elevated troponin History of Present Illness This is an 89-year-old male patient who presents to the emergency room with chief complaint of generalized weakness. Cardiology has been consulted at this time for elevated troponin level. The patient denies any cardiac symptoms including chest pain, shortness of breath, or palpitations. Initial twelve lead electrocardiogram reveals sinus bradycardia with first-degree conduction delay, PACs, and nonspecific T-wave changes to lateral leads. Initial troponin level of 99ng/L with flat trend thereafter. Significant past medical history includes coronary artery disease status post quadruple vessel CABG (on aspirin), hypertension, dyslipidemia, COPD, BPH, and dementia. The patient states he has not been following up with a career center advisor in the outpatient setting. Past Medical History Past medical history reviewed. No other significant than mentioned above. Past Surgical History Quadruple vessel CABG Family History: Cardiovascular disease G8 FATHER G8 BROTHER G8 BROTHER G8 SISTER G8 SISTER FH: heart attack G8 FATHER Family History Family history reviewed. Social History Denies the use of tobacco, alcohol or illicit drugs. Allergies: Coded Allergies: Bacitracin (Verified Allergy, Unknown, 02/05/16) Neomycin (Verified Allergy, Unknown, 02/05/16) Polymyxin B (Verified Allergy, Unknown, 02/05/16) Home Meds Reported Medications Lactulose (Lactulose) 10 Gm/15 Ml [place], 15 ML PO PRN for FOR CONSTIPATION 02/17/25 Sertraline Hcl (Sertraline Hcl) 25 Mg Tab, 50 MG PO DAILY 02/17/25 Furosemide (Furosemide) 20 Mg Tab, 2 TAB PO BID 02/17/25 Tamsulosin Hcl (Tamsulosin Hcl) 0.4 Mg Cap, 1 CAP PO DAILY 02/17/25 Isosorbide Mononitrate (Isosorbide Mononitrate Er) 30 Mg Tab, 3 TAB PO DAILY 02/17/25 Potassium Chloride (Klor-Con M10) 10 Meq Tab, 2 TAB PO BID 02/17/25 Allopurinol (Allopurinol) 100 Mg Tab, 2 TAB PO HS 02/17/25 Atorvastatin Calcium (ATORVASTATIN CALCIUM) 20 Mg Tab, 1 TAB PO DAILY 02/17/25 Clonazepam (Clonazepam) 1 Mg Tab, 1 TAB PO HS 02/17/25 Aspirin (Aspir-81) 81 Mg Tab, 1 TAB PO DAILY, TAB 08/01/17 Home Meds Home medications reviewed. Current Medications Current Medications Medications (Trade) Dose Ordered Sig/Marly Route PRN Reason Start Time Stop Time Status Last Admin Aspirin 81 mg DAILY PO 02/18/25 10:00 02/18/25 09:39 Ceftriaxone Sodium 50 ml @ 100 mls/hr DAILY@09 IV 02/17/25 19:49 02/18/25 09:41 Furosemide (Lasix Tablet) 40 mg DAILY PO 02/18/25 10:00 02/18/25 11:39 DC 02/18/25 09:40 Allopurinol (Zyloprim Tablet) 100 mg DAILY PO 02/18/25 10:00 02/18/25 09:41 Isosorbide Mononitrate (Ismo Tablet) 20 mg BID PO 02/17/25 22:00 02/18/25 09:40 Atorvastatin Calcium (Lipitor) 20 mg HS PO 02/17/25 22:00 02/17/25 22:56 Tamsulosin HCl (Flomax) 0.4 mg QPM PO 02/18/25 18:00 Ondansetron HCl (Zofran) 4 mg Q4HP PRN IV NAUSEA / VOMITING 02/17/25 19:15 Enoxaparin Sodium (Lovenox) 30 mg DAILY SC 02/18/25 10:00 02/18/25 09:41 Acetaminophen (Tylenol Tablet) 650 mg Q6HP PRN PO PAIN SCALE 1-3 OR TEMP>100.4 02/17/25 19:15 Nitroglycerin (Ntrostat Sublingual) 0.4 mg Q5MINP PRN SL FOR CHEST PAIN 02/17/25 19:15 Morphine Sulfate 2 mg Q30M PRN IV FOR CHEST PAIN 02/17/25 19:15 Hydralazine HCl (Apresoline Injection) 10 mg Q6HP PRN IV SBP>160 02/18/25 05:00 02/18/25 05:51 Review of Systems Constitutional: Generalized weakness Ears, Nose, & Throat: No symptom reported Eyes: No symptom reported Neurological: No symptoms reported Pulmonary/Respiratory: No symptoms reported Cardiovascular: No symptom reported Gastrointestinal: No symptom reported Genitourinary: No symptom reported Musculoskeletal: No symptom reported Skin: No symptom reported Psychiatric: No symptom reported Endocrine: No symptom reported Hematologic/Lymphatic: No symptom reported Vital Signs Vital Signs Date Time Temp Pulse Resp B/P (MAP) Pulse Ox O2 Delivery O2 Flow Rate FiO2 02/18/25 09:40 146/72 02/18/25 09:00 98.6 62 19 94 98.6 02/17/25 22:11 Room Air* 0 21 Physical Exam General Appearance: Cooperative. Well-developed. Well-nourished. No acute distress. Pulmonary/Respiratory: Clear, bilateral breaths sounds. Cardiovascular/Chest: Regular rate and rhythm. Peripheral Pulses: 2+ Radial (R). 2+ Radial (L). 2+ Pedal (R). 2+ Pedal (L) Abdominal Exam: Normal bowel sounds. Ankle Exam: Negative ankle edema Lower extremities: Negative lower extremity edema Neuro/Mental Status: A/OX4, coherent. Thoughts/Psych: Normal thought pattern. Appropriate mood and affect. Good judgment and insight. Appearance: No acute distress. Skin Exam: Normal inspection. Normal color. Warm and dry. Labs/Diagnostic Data Labs Test 02/18/25 06:32 02/17/25 18:30 02/17/25 17:40 02/17/25 14:14 Range/Units White Blood Count 6.6 4.4-10.8 10^3/uL Red Blood Count 4.12 L 4.5-5.90 10^6/uL Hemoglobin 13.1 L 13.5-17.5 g/dL Hematocrit 38.3 L 41.0-53.0 % Mean Corpuscular Volume 93.0 80.0-100.0 fL Mean Corpuscular Hemoglobin 31.8 28.0-32.0 pg Mean Corpuscular Hemoglobin Concent 34.2 32.0-36.0 g/dL Red Cell Distribution Width 14.9 H 11.8-14.3 % Platelet Count 125 L 140-450 10^3/uL Mean Platelet Volume 8.4 6.9-10.8 fL Neutrophils (%) (Auto) 70.2 37.0-80.0 % Lymphocytes (%) (Auto) 19.3 10.0-50.0 % Monocytes (%) (Auto) 8.5 0.0-12.0 % Eosinophils (%) (Auto) 1.7 0.0-7.0 % Basophils (%) (Auto) 0.3 0.0-2.0 % Neutrophils # (Auto) 4.7 1.6-8.6 10 ^3/uL Lymphocytes # (Auto) 1.3 0.4-5.4 10 ^3/uL Monocytes # (Auto) 0.6 0-1.3 10 ^3/uL Eosinophils # (Auto) 0.1 0-0.8 10 ^3/uL Basophils # (Auto) 0 0-0.2 10 ^3/uL Nucleated Red Blood Cells 0.1 % Sodium Level 139 136-145 mmol/L Potassium Level 3.5 3.5-5.1 mmol/L Chloride Level 101 98-107 mmol/L Carbon Dioxide Level 30 20-31 mmol/L Anion Gap 8 5-15 Blood Urea Nitrogen 36 H 9-23 mg/dL Creatinine 1.71 H 0.700-1.30 mg/dL Glomerular Filtration Rate Calc 38 >90 mL/min BUN/Creatinine Ratio 21.1 H 10.0-20.0 Serum Glucose 103 74-106 mg/dL Calcium Level 8.5 L 8.7-10.4 mg/dL Urine Color Yellow Yellow Urine Clarity Turbid H Clear Urine pH 6.0 5.0-9.0 Urine Specific [place] 1.019 1.001-1.035 Urine Protein 1+ H Negative Urine Ketones Negative Negative Urine Blood 1+ H Negative /uL Urine Nitrite Negative Negative Urine Bilirubin Negative Negative Urine Urobilinogen Normal Negative mg/dL Urine Leukocyte Esterase 1+ Negative /uL Urine RBC 26 0 - 3 /hpf Urine Microscopic WBC 16 H 0-3 /HPF Urine Squamous Epithelial Cells Few <5 /hpf Urine Bacteria None seen None Seen /hpf Urine Hyaline Casts Few 0 - 2 /lpf Urine Yeast (Budding) Occasional None Seen /hpf Urine Glucose Normal Normal mg/dL Troponin I High Sensitivity 97 *H </=54 ng/L Lactic Acid Level 1.1 0.4-2.0 mmol/L Total Bilirubin 0.6 0.2-1.0 mg/dL Aspartate Amino Transferase (AST) 100 H 13-40 U/L Alanine Aminotransferase (ALT) 127 H 7-40 U/L Alkaline Phosphatase 72 46-116 U/L B-Type Natriuretic Peptide 223.96 0-100 pg/mL Total Protein 7.2 5.7-8.2 g/dL Albumin 4.5 3.2-4.8 g/dL Test 02/17/25 12:38 Range/Units POC Glucose 103 70-106 mg/dl Assessment Hypertensive urgency Urinary tract infection NSTEMI, likely type 2 secondary to above History of coronary artery disease status post quadruple vessel CABG (on aspirin) Rule out structural heart disease Hypertension Dyslipidemia COPD BPH Acute kidney injury Transaminitis Dementia Plan/Recommendation We will continue with the following plan/recommendations (Dr. Bae): Patient seen and examined at bedside with . The patient denies all cardiac symptoms prior to admission and at time of assessment. Case reviewed with MD. Elevated troponin level likely in the setting of urinary tract infection. Blood pressure is also noted to be elevated, we will recommend to continue with aggressive blood pressure control as tolerated. Continue with single antiplatelet therapy and lipid-lowering agent. In the setting of an unremarkable transthoracic echocardiogram, there is no further inpatient cardiac workup indicated at this time. The patient should follow up with a career center advisor in the outpatient setting upon discharge. Thank you for allowing us to care for this patient. Please call with any questions or concerns. Critical care time spent: 44 minutes This medical document was created using an electronic medical record system with voice recognition software and computerized dictation system. Although this document has been carefully reviewed, there might still be some phonetic and typographical errors. Occasional wrong-word or ``sound-alike substitutions may have occurred due to the inherent limitations of voice recognition software. These areas are purely typographical due to imperfections of the software programs and do not reflect any compromise in the patient's medical care. Please read the chart carefully and recognize, using context, where these substitutions have occurred. Plan discussed with: Patient NYHA Physical activity limitations: NA Date of Service: Feb 18, 2025 Billing Provider: KELLIE WEISS Cardiology Common Codes: [id number] INP/OBS CARE (High) Cardiology Consultation Codes: [id number] CONSULT <45MIN KELLIE WEISS Feb 18, 2025 14:18
--- NOTE | 2025-02-18 16:48 | MEDREC ---
[facility] Intervention Section I [facility] Intervention: Review courses of therapy (No infection source, please consider D/C ceftriaxone ) [facility] Feb 18, 2025 16:48
[2025-02-18] MEDS: TAMSULOSIN HYDROCHLORIDE 0.4 MG CAP PO SCH (18:58)
--- NOTE | 2025-02-18 19:15 | ECG ---
[facility] Test Date: 2025-02-17 Test Time: 12:42:11 Pat Name: PRIETO GARCIA Department: ED Room: 0222T B Gender: M Bin Worker: [id number] : [id number] Requested By: ROXANNE LAWRENCE Order Number: [id number] Reading MD: Miguel To Measurements Intervals [place] Rate: 56 P: 34 SD: 238 QRS: 38 QRSD: 102 T: 111 QT: 444 QTc: 429 Interpretive Statements Sinus rhythm Atrial premature complex Prolonged SD interval Probable LVH with secondary repol abnrm Electronically Signed On 02-23-2025 22:32:11 PDT by Miguel To Please click the below link to view image of tracing.
[2025-02-19] VITALS (8 sets, daily range): BP systolic 135–175; BP diastolic 59–76; PULSE 55–66; RESP 16–19; TEMP 97.1–98.1; O2SAT 93–98
[2025-02-19 07:06] LABS: Hematocrit 35.4 % (41.0-53.0); Hemoglobin 12.4 g/dL (13.5-17.5); Mean Corpuscular Hemoglobin 32.4 pg (28.0-32.0); Mean Corpuscular Volume 92.5 fL (80.0-100.0); Nucleated Red Blood Cells % 0.1 %
[2025-02-19 07:15] LABS: Albumin 3.8 g/dL (3.2-4.8); Alkaline Phosphatase 62 U/L (46-116); Anion Gap 8 (5-15); BUN/Creatinine Ratio 17.1 (10.0-20.0); Carbon Dioxide 29 mmol/L (20-31); Chloride 103 mmol/L (98-107); Sodium 140 mmol/L (136-145); Total Protein 6.0 g/dL (5.7-8.2)
[2025-02-19 07:16] LABS: Alanine Aminotransferase 59 U/L (7-40); Bilirubin, Total 0.6 mg/dL (0.2-1.0); Blood Urea Nitrogen 27 mg/dL (9-23); Calcium 8.7 mg/dL (8.7-10.4); Glucose 107 mg/dL (74-106); Potassium 3.4 mmol/L (3.5-5.1)
[2025-02-19] MEDS: ISOSORBIDE MONONITRATE ER 60 MG TAB PO SCH (09:07)
--- NOTE | 2025-02-19 14:10 | DVHSR ---
APPROVED REPORT EXAM: Two-dimensional and M-mode echocardiogram with Doppler and color Doppler. Blood Pressure: 189/92 mmHg INDICATION EF RISK FACTORS Height: 5'7", Weight: 160 DIMENSIONS LVDd4.3 (3.8-5.7cm)LA (2D)4.2 (1.9-4.0cm)Aortic Root3.3 (2.0-3.7cm) LVDs3.0 (2.5-4.0cm)LA (MM) (1.9-4.0cm)Aortic Cusp Exc0.3 (1.5-2.0cm) EF (%) 60.0 (55-70%)Rt. Atrium3.5 (1.9-4.0cm)Asc. Aorta3.0 cm IVSd1.2 (0.7-1.1cm)RV (D)4.0 (1.8-2.4cm) PWd0.8 (0.7-1.1cm) Mitral Valve MitralMitral Stenosis E wave0.94m/sMV Mean GR.2mmHg A wave0.91m/sMV Peak GR.5mmHg E/A ratio1.02D MVAcm2 DECEL [id number] 1/2 Timems Aortic Valve Aortic ValveAortic Stenosis V10.80m/Daisy Mean GR.14mmHg V22.49m/Daisy Peak GR.25mmHg LVOT Diameter2.0 (1.8-2.4cm)Doppler AVA1.01cm2 2D AVA0.84cm2 Pulmonic Valve V20.92m/s Conclusion There is mild concentric left ventricular hypertrophy Left ventricular systolic function is preserved Ejection fraction is estimated at 60% Aortic valve is calcified There is mild to moderate aortic stenosis Mitral valve is thickened and calcified There is mild mitral regurgitation There is mild tricuspid regurgitation
--- NOTE | 2025-02-19 14:40 | DVHDS ---
DATE OF DISCHARGE: 02/19/2025 HISTORY OF PRESENT ILLNESS: The patient is an 89-year-old gentleman who was admitted with a history of generalized weakness and fatigue and has history of coronary artery disease status post CABG, dementia, COPD, CHF, chronic kidney disease. HOSPITAL COURSE: The patient had evidence of urinary tract infection. The patient, as per the , was noted to have an irregular heartbeat by the paramedics. Echocardiogram done showed ejection fraction of 60%. The patient was seen in cardiology consult by Dr. Bae. The patient was noted to have elevated blood pressure. He will now be transferred to [place] for further management. FINAL DIAGNOSES: * UTI with questionable sepsis. * Coronary artery disease status post CABG. * Non-STEMI. * Dementia. * COPD. * BPH. 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 * Thrombocytopenia. Please state that the patient's troponin levels were increased up to 102. The patient's creatinine improved from 1.8 at admission to 1.5 at the time of transfer. The patient had a chest x-ray that showed no acute disease. Time spent in discharge planning and review of plan with the patient, , and nursing was 38 minutes. MD YUDY Vickers/AL TID: [id number] RECEIPT: [id number]
[2025-02-19] MEDS: POTASSIUM CHL 20 Meq TABLET PO ONE (15:33)
== END 2025-02-19 23:22 | disposition short-term general hospital (02) | DRG 871 ==
LOC: EDBD 12:28 → ER 12:28 → OVERFLOW 19:41 → TELE-CENTR 21:35
PROVIDERS: ADMIT Internal Medicine; ATTEND Internal Medicine
DX: A41.9 Sepsis, unspecified organism (principal); G93.41 Metabolic encephalopathy; I21.A1 Myocardial infarction type 2; N17.0 Acute kidney failure with tubular necrosis; I13.0 Hypertensive heart and chronic kidney disease with heart failure and stage 1 through stage 4 chronic kidney disease, or unspecified chronic kidney disease; N39.0 Urinary tract infection, site not specified; N18.9 Chronic kidney disease, unspecified; F03.90 Unspecified dementia, unspecified severity, without behavioral disturbance, psychotic disturbance, mood disturbance, and anxiety; R79.89 Other specified abnormal findings of blood chemistry; I16.0 Hypertensive urgency; E78.5 Hyperlipidemia, unspecified; E11.22 Type 2 diabetes mellitus with diabetic chronic kidney disease; J44.9 Chronic obstructive pulmonary disease, unspecified; N40.0 Benign prostatic hyperplasia without lower urinary tract symptoms; D69.6 Thrombocytopenia, unspecified
CPT/HCPCS: 36415; 71045; 80048; 80053; 81001; 82607; 82962; 83605; 83880; 84443; 84484; 85025; 87086; 93005; 93306; 96365; G0378